=== PATIENT | female | born 1955 | race African-American/Black ===

== ENCOUNTER 2016-06-04 10:53 | Emergency (ER) | payer OTHER, BC ==
[~2016-06-04] VITALS: Ht 162.6 cm; Wt 68.5 kg
[2016-06-04 11:35] LABS: BASO % 1 % (0-3); EOS % 0 % (0-3); HEMATOCRIT 42.3 % (36.0-47.0); HEMOGLOBIN 14.4 g/dL (12.0-15.5); LYMPH # 0.3 x10^3/uL (1.0-4.8); LYMPH % 5 % (24-48); MEAN CORPUSCULAR HEMOGLOBIN 31 pg (25-35); MEAN CORPUSCULAR HGB CONC 34 g/dL (31-37); MEAN CORPUSCULAR VOLUME 92 fL (79-100); MONO % 13 % (0-9); NEUT % 82 % (31-73); PLATELET COUNT 208 x10^3/uL (140-400); RED BLOOD COUNT 4.59 x10^6/uL (3.50-5.40); RED CELL DISTRIBUTION WIDTH 14.4 % (11.5-14.5); WHITE BLOOD COUNT 6.6 x10^3/uL (4.0-11.0)
[2016-06-04 11:45] LABS: CREATININE 1.1 mg/dL (0.6-1.0); GFR 60.9; POTASSIUM 3.2 mmol/L (3.5-5.1)
[2016-06-04 11:52] LABS: ALBUMIN 3.4 g/dL (3.4-5.0); ALBUMIN/GLOBULIN RATIO 0.8 (1.0-1.7); TOTAL BILIRUBIN 0.5 mg/dL (0.2-1.0); TOTAL PROTEIN 7.7 g/dL (6.4-8.2)
--- NOTE | 2016-06-04 11:56 | EKG ---
[facility] [address] [place] [address] Test Date: 2016-06-04 Test Time: 11:18:41 Pat Name: SANDRA GRESHAM Department: Room: Gender: F Intraoperative Neuro Tech: : 1955 Requested By: LINDSAY LIMA Order Number: [id number] Reading MD: Frank Antonio Measurements Intervals [place] Rate: 121 P: 12 IN: 92 QRS: 76 QRSD: 98 T: 19 QT: 348 QTc: 497 Interpretive Statements SINUS TACHYCARDIA POSSIBLE LEFT ATRIAL ABNORMALITY INCOMPLETE RIGHT BUNDLE BRANCH BLOCK QRS(T) CONTOUR ABNORMALITY CONSIDER ANTEROSEPTAL MYOCARDIAL DAMAGE RI6.01 Unconfirmed report No previous ECG available for comparison Electronically Signed On 06-11-2016 10:30:22 NURSING SCHEDULER by Frank Antonio
--- NOTE | 2016-06-04 11:59 | RAD ---
Chest, 2 views, 06/04/2016: History: Cough and weakness Comparison is made to a study from 12/19/2014. The heart size and pulmonary vascularity are normal. There is mild scarring over the pulmonary apices. There is a tiny unchanged opacity in the lateral aspect of the right upper lobe compatible with a scar or granuloma. No acute infiltrates are seen. There is no evidence of pleural fluid. IMPRESSION: No acute cardiopulmonary abnormality is detected.
[2016-06-04] MEDS ORDERED: IV NORMAL SALINE 1000ML BAG 1,000 ML IV ONE ×2 (12:00→13:00)
[2016-06-04 12:08] LABS: OBC FLU VALID
[2016-06-04] MEDS ORDERED: KETOROLAC 15 MG/ML VIAL. IV ONE (12:15)
[2016-06-04] MEDS ORDERED: ACETAMINOPHEN 500 MG TABLET PO ONE (12:15)
[2016-06-04 12:23] LABS: PLT ESTIMATE ADEQUATE (ADEQUATE)
[2016-06-04 12:24] LABS: ANISOCYTOSIS SLIGHT
[2016-06-04] MEDS ORDERED: IPRATRPIUM/ALBUTEROL 0.5/2.5MG 3 ML NEBU. NEB ONE (13:00)
--- NOTE | 2016-06-04 13:53 | PHYS DOC ---
Past Medical History Past Medical History: Anxiety, Depression, Hypertension, Other Additional Past Medical Histor: breast ca Past Surgical History: Other Additional Past Surgical Histo: L lumpectomy Alcohol Use: Heavy Drug Use: None Adult General Chief Complaint Chief Complaint: COUGH HPI HPI Patient is a 60 year old female who presents with cough, fever, chills, myalgia , rhinorrhea, and sore throat for the past week. She notes taking abx for pna approx 3 weeks ago. She has been taking OTC cough medicine as well as prescription cough medicine per her PCP from prior illness. She denies n/v, diarrhea, dizziness, chest pain, dyspnea, abd pain, hemoptysis, leg pain or swelling, or orthopnea. Review of Systems Review of Systems Constitutional: Has fever and chills [] Eyes: Denies change in visual acuity, redness, or eye pain [] HENT: Has nasal congestion and sore throat [] Respiratory: Denies shortness of breath [] Cardiovascular: No additional information not addressed in HPI [] GI: Denies abdominal pain, nausea, vomiting, bloody stools or diarrhea [] : Denies dysuria or hematuria [] Musculoskeletal: Denies back pain or joint pain [] Integument: Denies rash or skin lesions [] Neurologic: Denies focal weakness or sensory changes [] Endocrine: Denies polyuria or polydipsia [] Current Medications Current Medications Current Medications Medications (Trade) Dose Ordered Sig/Deepak Start Time Stop Time Status Last Admin Dose Admin Acetaminophen (Tylenol) 500 mg 1X ONCE 06/04/16 12:15 06/04/16 12:16 DC 06/04/16 12:44 500 MG Albuterol/ Ipratropium (Duoneb) 3 ml 1X ONCE 06/04/16 13:00 06/04/16 13:01 DC 06/04/16 13:07 3 ML Ketorolac Tromethamine 15 mg 15 mg 1X ONCE 06/04/16 12:15 06/04/16 12:16 DC 06/04/16 12:46 15 MG Sodium Chloride (Iv Sodium Chloride 0.9% 1000ml Bag) 1,000 ml @ 1,000 mls/hr 1X ONCE 06/04/16 13:00 06/04/16 13:59 DC 06/04/16 13:14 1,000 MLS/HR Allergies Allergies Allergies Coded Allergies Type Severity Reaction Last Updated Verified No Known Drug Allergies 12/19/14 No Physical Exam Physical Exam Constitutional: Well developed, well nourished, no acute distress, non-toxic appearance. [] HENT: Normocephalic, atraumatic, bilateral external ears normal, oropharynx moist, no oral exudates, nose normal. [] Eyes: PERRLA, EOMI, conjunctiva normal, no discharge. [] Neck: Normal range of motion, no tenderness, supple, no stridor. [] Cardiovascular: Regular tachycardia [] Lungs & Thorax: Bilateral breath sounds clear to auscultation [] Abdomen: Bowel sounds normal, soft, no tenderness. [] Skin: Warm, dry, no erythema, no rash. [] Back: No tenderness, no CVA tenderness. [] Extremities: No tenderness, ROM intact, no edema, no palpable cord. [] Neurologic: Alert and oriented X 3, normal motor function, normal sensory function, no focal deficits noted. [] Psychologic: Affect normal, judgement normal, mood normal. [] Current Patient Data Vital Signs Vital Signs Date Time Temp Pulse Resp B/P Pulse Ox O2 Delivery O2 Flow Rate FiO2 06/04/16 14:44 100.3 108 22 134/75 97 Room Air 100.3 Lab Values Laboratory Tests Test 06/04/16 11:23 06/04/16 11:26 White Blood Count 6.6x10^3/uL (4.0-11.0) Red Blood Count 4.59x10^6/uL (3.50-5.40) Hemoglobin 14.4g/dL (12.0-15.5) Hematocrit 42.3% (36.0-47.0) Mean Corpuscular Volume 92fL (79-100) Mean Corpuscular Hemoglobin 31pg (25-35) Mean Corpuscular Hemoglobin Concent 34g/dL (31-37) Red Cell Distribution Width 14.4% (11.5-14.5) Platelet Count 208x10^3/uL (140-400) Neutrophils (%) (Auto) 82% (31-73) H Lymphocytes (%) (Auto) 5% (24-48) L Monocytes (%) (Auto) 13% (0-9) H Eosinophils (%) (Auto) 0% (0-3) Basophils (%) (Auto) 1% (0-3) Neutrophils # (Auto) 5.4x10^3uL (1.8-7.7) Lymphocytes # (Auto) 0.3x10^3/uL (1.0-4.8) L Monocytes # (Auto) 0.8x10^3/uL (0.0-1.1) Eosinophils # (Auto) 0.0x10^3/uL (0.0-0.7) Basophils # (Auto) 0.0x10^3/uL (0.0-0.2) Segmented Neutrophils % 72% (35-66) H Band Neutrophils % 16% (0-9) H Lymphocytes % 2% (24-48) L Monocytes % 10% (0-10) Platelet Estimate Adequate (ADEQUATE) Anisocytosis Slight Sodium Level 138mmol/L (136-145) Potassium Level 3.2mmol/L (3.5-5.1) L Chloride Level 99mmol/L (98-107) Carbon Dioxide Level 27mmol/L (21-32) Anion Gap 12 (6-14) Blood Urea Nitrogen 8mg/dL (7-20) Creatinine 1.1mg/dL (0.6-1.0) H Estimated GFR (Cockcroft-Gault) 60.9 BUN/Creatinine Ratio 7 (6-20) Glucose Level 123mg/dL (70-99) H Calcium Level 9.0mg/dL (8.5-10.1) Total Bilirubin 0.5mg/dL (0.2-1.0) Aspartate Amino Transferase (AST) 25U/L (15-37) Alanine Aminotransferase (ALT) 24U/L (14-59) Alkaline Phosphatase 91U/L (46-116) Troponin I Quantitative < 0.017ng/mL (0.000-0.055) Total Protein 7.7g/dL (6.4-8.2) Albumin 3.4g/dL (3.4-5.0) Albumin/Globulin Ratio 0.8 (1.0-1.7) L Influenza Type A Antigen Negative (NEGATIVE) Influenza Type B Antigen Negative (NEGATIVE) Laboratory Tests 06/04/16 11:23 Laboratory Tests 06/04/16 11:23 EKG EKG EKG as interpreted by me as sinus tachycardia rate 121, no ST-T changes, UT 92, QTC 497, no ectopy, no delta wave Radiology/Procedures Radiology/Procedures Chest xray as interpreted by me with no acute cardiopulmonary disease process Course & Med Decision Making Course & Med Decision Making Pertinent Labs and Imaging studies reviewed. (See chart for details) Workup is unremarkable. Cough did not improve with neb treatment. Discussed symptomatic treatment. Return precautions given. She understands and agrees with plan. Dragon Disclaimer Dragon Disclaimer This electronic medical record was generated, in whole or in part, using a voice recognition dictation system. Departure Departure Impression: Primary Impression: Viral upper respiratory infection Disposition: HOME, SELF-CARE Condition: STABLE Referrals: PETE SÁNCHEZ MD (PCP) Patient Instructions: Upper Respiratory Infection, Adult, [id number] Additional Instructions: Take Tylenol or ibuprofen as needed for moderate pain. Take tylenol with codeine as needed for severe pain. Do not drink, drive or operate heavy machinery after taking tylenol with codeine as it may make you sleepy. Follow- up with your primary care doctor. Return for any concerns. Scripts Acetaminophen With Codeine (Tylenol With Codeine #3 Tablet)1 Each Tablet1 Tab PO PRN Q4HRS PRN PAIN #10 TAB Prov:Dre JC MD 06/04/16 Dre JC MD Jun 04, 2016 13:53
[2016-06-04] MEDS ORDERED: ACET-704 PO (13:57)
[2016-06-04 14:44] VITALS: BP 134/75
== END 2016-06-04 14:46 | disposition home or self-care (01) ==
LOC: ER 10:53
DX: J06.9 Acute upper respiratory infection, unspecified (principal); R00.0 Tachycardia, unspecified; F41.9 Anxiety disorder, unspecified; F32.9 Major depressive disorder, single episode, unspecified; I10 Essential (primary) hypertension; F10.10 Alcohol abuse, uncomplicated
CPT/HCPCS: 36415; 71020; 80053; 84484; 85007; 85027; 87804; 93005; 94250; 94640; 96361; 96374; 99285; J1885; J7030; J7620

== ENCOUNTER 2018-03-17 12:51 | Emergency (ER) | payer OTHER, BC ==
[~2018-03-17] VITALS: Ht 162.6 cm; Wt 88.0 kg
[~2018-03-17 12:51] MED LIST: ACET-704 PO
[2018-03-17] MEDS: IV NORMAL SALINE 1000ML BAG 1,000 ML IV ONE ×2 (13:15→15:45)
[2018-03-17 13:25] LABS: BASO # 0.1 x10^3/uL (0.0-0.2); BASO % 1 % (0-3); EOS # 0.1 x10^3/uL (0.0-0.7); EOS % 0 % (0-3); HEMATOCRIT 48.8 % (36.0-47.0); HEMOGLOBIN 16.9 g/dL (12.0-15.5); LYMPH # 2.2 x10^3/uL (1.0-4.8); LYMPH % 17 % (24-48); MEAN CORPUSCULAR HEMOGLOBIN 30 pg (25-35); MEAN CORPUSCULAR HGB CONC 35 g/dL (31-37); MEAN CORPUSCULAR VOLUME 86 fL (79-100); MONO # 0.4 x10^3/uL (0.0-1.1); MONO % 3 % (0-9); NEUT # 10.1 x10^3uL (1.8-7.7); NEUT % 78 % (31-73); PLATELET COUNT 410 x10^3/uL (140-400); RED BLOOD COUNT 5.67 x10^6/uL (3.50-5.40); RED CELL DISTRIBUTION WIDTH 14.8 % (11.5-14.5); WHITE BLOOD COUNT 12.9 x10^3/uL (4.0-11.0)
[2018-03-17 13:36] LABS: CALCIUM 9.8 mg/dL (8.5-10.1); CREATININE 1.8 mg/dL (0.6-1.0); GFR 34.3; POTASSIUM 3.4 mmol/L (3.5-5.1)
[2018-03-17 13:42] LABS: ALBUMIN 3.7 g/dL (3.4-5.0); ALBUMIN/GLOBULIN RATIO 0.7 (1.0-1.7); MAGNESIUM 1.6 mg/dL (1.8-2.4); TOTAL BILIRUBIN 0.5 mg/dL (0.2-1.0); TOTAL PROTEIN 8.7 g/dL (6.4-8.2)
--- NOTE | 2018-03-17 13:51 | RAD ---
CT HEAD INDICATION: Syncope COMPARISON: None Available. Exposure: One or more of the following individualized dose reduction techniques were utilized for this examination: 1. Automated exposure control 2. Adjustment of the mA and/or kV according to patient size 3. Use of iterative reconstruction technique TECHNIQUE: 5 mm contiguous axial images were obtained from the skull base to the vertex FINDINGS: Mild bilateral periventricular white matter hypodensities likely chronic small vessel ischemic disease. No evidence of acute intracranial hemorrhage. No extra-axial fluid collections. No mass effect or midline shift. Ventricular size is appropriate. Basal cisterns are patent. No fractures identified.Thomson-white differentiation is preserved.Globes and orbits are within normal limits. Paranasal sinuses and mastoid air cells are clear. IMPRESSION: No acute intracranial findings. Electronically signed by: Antonio Willams MD (03/17/2018 1:48 PM) [place] [id number]
--- NOTE | 2018-03-17 14:17 | RAD ---
AP and Lateral Views of the Chest 03/17/2018 1:11 PM Indication: patient passed out today at work Comparison: 2 views of the chest June 04, 2016 Findings: There is no new focal consolidation or infiltrate identified. Probable calcified granuloma in the right upper lung noted. Heart size is normal. There is no evidence of pneumothorax or pleural effusion. No acute osseous abnormalities are identified. Impression: No evidence of acute cardiopulmonary process. Electronically signed by: Josemanuel Ocampo MD (03/17/2018 2:14 PM) [id number]
--- NOTE | 2018-03-17 14:28 | EKG ---
[facility] [address] [place] [address] Test Date: 2018-03-17 Test Time: 13:24:21 Pat Name: SANDRA GRESHAM Department: Room: Gender: F International Account Manager: : 1955 Requested By: ESEQUIEL SUTTON Order Number: [id number] Reading MD: Measurements Intervals [place] Rate: 72 P: 56 DC: 138 QRS: 52 QRSD: 82 T: 52 QT: 452 QTc: 497 Interpretive Statements SINUS RHYTHM LEFT ATRIAL ABNORMALITY QRS(T) CONTOUR ABNORMALITY CONSIDER ANTEROSEPTAL MYOCARDIAL DAMAGE CONSIDER INFERIOR MYOCARDIAL DAMAGE PROLONGED QT ABNORMAL ECG RI6.01 No previous ECG available for comparison
[2018-03-17 15:30] VITALS: BP 137/76
[2018-03-17] MEDS ORDERED: IV NORMAL SALINE 1000ML BAG 1,000 ML IV SCH (15:39)
[2018-03-17] MEDS ORDERED: ONDANSETRON PF 4 MG/2 ML VIAL. IV PRN (15:45)
[2018-03-17] MEDS ORDERED: MORPHINE SULFATE 4 MG/ML VIAL. IV PRN (15:45)
[2018-03-17] MEDS ORDERED: fentaNYL PF VIAL 100 MCG/2 ML VIAL IV PRN (15:45)
[2018-03-17 16:36] LABS: BILIRUBIN,URINE NEGATIVE (NEG); CLARITY,URINE CLOUDY; COLOR,URINE YELLOW; NITRITE,URINE NEGATIVE (NEG); PH,URINE 6.5; PROTEIN,URINE NEGATIVE (NEG-TRACE)
[2018-03-17 16:41] LABS: BACTERIA,URINE MODERATE /HPF (0-FEW); RBC,URINE 0 /HPF (0-2); SQUAMOUS EPITHELIAL CELL,UR MANY /LPF
[2018-03-17 16:42] LABS: BARBITURATES NEG (NEG); BENZODIAZEPINES NEG (NEG); CANNABINOIDS NEG (NEG); COCAINE POS (NEG); HYALINE CASTS, URINE FEW /HPF; METHADONE NEG (NEG); OPIATES NEG (NEG); PHENCYCLIDINE NEG (NEG)
[2018-03-17 16:43] LABS: AMPHETAMINE/METHAMPHETAMINE NEG (NEG)
--- NOTE | 2018-03-17 16:58 | PHYS DOC ---
Past Medical History Past Medical History: Anxiety, Depression, Hypertension, Other Additional Past Medical Histor: breast ca, CRACK ADDICT Past Surgical History: Other Additional Past Surgical Histo: L lumpectomy Alcohol Use: Heavy Drug Use: Other Social History Narrative: CRACK 5 TIMES A DAY Adult General Chief Complaint Chief Complaint: SYNCOPE HPI HPI Patient is a 62 year old [f__sex] who presents with [] Review of Systems Review of Systems Constitutional: Denies fever or chills [] Eyes: Denies change in visual acuity, redness, or eye pain [] HENT: Denies nasal congestion or sore throat [] Respiratory: Denies cough or shortness of breath [] Cardiovascular: No additional information not addressed in HPI [] GI: Denies abdominal pain, nausea, vomiting, bloody stools or diarrhea [] : Denies dysuria or hematuria [] Musculoskeletal: Denies back pain or joint pain [] Integument: Denies rash or skin lesions [] Neurologic: Denies headache, focal weakness or sensory changes [] Endocrine: Denies polyuria or polydipsia [] All other systems were reviewed and found to be within normal limits, except as documented in this note. Current Medications Current Medications Current Medications Medications (Trade) Dose Ordered Sig/Deepak Start Time Stop Time Status Last Admin Dose Admin Fentanyl Citrate (Fentanyl 2ml Vial) 50 mcg PRN Q1HR PRN 03/17/18 15:45 03/18/18 15:44 Cancel Morphine Sulfate (Morphine Sulfate) 4 mg PRN Q2HR PRN 03/17/18 15:45 03/18/18 15:44 Cancel Ondansetron HCl (Zofran) 4 mg PRN Q8HRS PRN 03/17/18 15:45 03/18/18 15:44 Cancel Sodium Chloride 1,000 ml @ 125 mls/hr Q8H 03/17/18 15:39 03/18/18 15:38 Cancel Allergies Allergies Allergies Coded Allergies Type Severity Reaction Last Updated Verified lisinopril Allergy Unknown 03/17/18 Yes Physical Exam Physical Exam Constitutional: Well developed, well nourished, no acute distress, non-toxic appearance. [] HENT: Normocephalic, atraumatic, bilateral external ears normal, oropharynx moist, no oral exudates, nose normal. [] Eyes: PERRLA, EOMI, conjunctiva normal, no discharge. [] Neck: Normal range of motion, no tenderness, supple, no stridor. [] Cardiovascular:Heart rate regular rhythm, no murmur [] Lungs & Thorax: Bilateral breath sounds clear to auscultation [] Abdomen: Bowel sounds normal, soft, no tenderness, no masses, no pulsatile masses. [] Skin: Warm, dry, no erythema, no rash. [] Back: No tenderness, no CVA tenderness. [] Extremities: No tenderness, no cyanosis, no clubbing, ROM intact, no edema. [] Neurologic: Alert and oriented X 3, normal motor function, normal sensory function, no focal deficits noted. [] Psychologic: Affect normal, judgement normal, mood normal. [] Current Patient Data Vital Signs Vital Signs Date Time Temp Pulse Resp B/P (MAP) Pulse Ox O2 Delivery O2 Flow Rate FiO2 03/17/18 16:00 78 16 99 Room Air 03/17/18 15:30 137/76 (96) 03/17/18 13:42 97.7 97.7 Lab Values Laboratory Tests Test 03/17/18 13:10 03/17/18 16:25 White Blood Count 12.9 x10^3/uL (4.0-11.0) H Red Blood Count 5.67 x10^6/uL (3.50-5.40) H Hemoglobin 16.9 g/dL (12.0-15.5) H Hematocrit 48.8 % (36.0-47.0) H Mean Corpuscular Volume 86 fL (79-100) Mean Corpuscular Hemoglobin 30 pg (25-35) Mean Corpuscular Hemoglobin Concent 35 g/dL (31-37) Red Cell Distribution Width 14.8 % (11.5-14.5) H Platelet Count 410 x10^3/uL (140-400) H Neutrophils (%) (Auto) 78 % (31-73) H Lymphocytes (%) (Auto) 17 % (24-48) L Monocytes (%) (Auto) 3 % (0-9) Eosinophils (%) (Auto) 0 % (0-3) Basophils (%) (Auto) 1 % (0-3) Neutrophils # (Auto) 10.1 x10^3uL (1.8-7.7) H Lymphocytes # (Auto) 2.2 x10^3/uL (1.0-4.8) Monocytes # (Auto) 0.4 x10^3/uL (0.0-1.1) Eosinophils # (Auto) 0.1 x10^3/uL (0.0-0.7) Basophils # (Auto) 0.1 x10^3/uL (0.0-0.2) Sodium Level 136 mmol/L (136-145) Potassium Level 3.4 mmol/L (3.5-5.1) L Chloride Level 100 mmol/L (98-107) Carbon Dioxide Level 26 mmol/L (21-32) Anion Gap 10 (6-14) Blood Urea Nitrogen 16 mg/dL (7-20) Creatinine 1.8 mg/dL (0.6-1.0) H Estimated GFR (Cockcroft-Gault) 34.3 BUN/Creatinine Ratio 9 (6-20) Glucose Level 158 mg/dL (70-99) H Calcium Level 9.8 mg/dL (8.5-10.1) Magnesium Level 1.6 mg/dL (1.8-2.4) L Total Bilirubin 0.5 mg/dL (0.2-1.0) Aspartate Amino Transferase (AST) 19 U/L (15-37) Alanine Aminotransferase (ALT) 16 U/L (14-59) Alkaline Phosphatase 115 U/L (46-116) Total Protein 8.7 g/dL (6.4-8.2) H Albumin 3.7 g/dL (3.4-5.0) Albumin/Globulin Ratio 0.7 (1.0-1.7) L Urine Collection Type Unknown Urine Color Yellow Urine Clarity Cloudy Urine pH 6.5 Urine Specific Lohn 1.020 Urine Protein Negative mg/dL (NEG-TRACE) Urine Glucose (UA) Negative mg/dL (NEG) Urine Ketones (Stick) Negative mg/dL (NEG) Urine Blood Negative (NEG) Urine Nitrite Negative (NEG) Urine Bilirubin Negative (NEG) Urine Urobilinogen Dipstick 1.0 mg/dL (0.2 mg/dL) Urine Leukocyte Esterase Trace (NEG) Urine RBC 0 /HPF (0-2) Urine WBC 1-4 /HPF (0-4) Urine Squamous Epithelial Cells Many /LPF Urine Bacteria Moderate /HPF (0-FEW) Urine Hyaline Casts Few /HPF Urine Mucus Mod /LPF Urine Opiates Screen Neg (NEG) Urine Methadone Screen Neg (NEG) Urine Barbiturates Neg (NEG) Urine Phencyclidine Screen Neg (NEG) Urine Amphetamine/Methamphetamine Neg (NEG) Urine Benzodiazepines Screen Neg (NEG) Urine Cocaine Screen Pos (NEG) Urine Cannabinoids Screen Neg (NEG) Urine Ethyl Alcohol Neg (NEG) Laboratory Tests 03/17/18 13:10 Laboratory Tests 03/17/18 13:10 EKG EKG [] Radiology/Procedures Radiology/Procedures [] PATIENT: SANDRA GRESHAM ACCOUNT: [id number] : 1955 LOCATION: ER AGE: 62 SEX: F EXAM STATUS: PRE ER ORD. PHYSICIAN: ESEQUIEL SUTTON APRN REASON: syncope PROCEDURE: CT HEAD WO CONTRAST CT HEAD INDICATION: Syncope COMPARISON: None Available. Exposure: One or more of the following individualized dose reduction techniques were utilized for this examination: 1. Automated exposure control 2. Adjustment of the mA and/or kV according to patient size 3. Use of iterative reconstruction technique TECHNIQUE: 5 mm contiguous axial images were obtained from the skull base to the vertex FINDINGS: Mild bilateral periventricular white matter hypodensities likely chronic small vessel ischemic disease. No evidence of acute intracranial hemorrhage. No extra-axial fluid collections. No mass effect or midline shift. Ventricular size is appropriate. Basal cisterns are patent. No fractures identified.Thomson-white differentiation is preserved.Globes and orbits are within normal limits. Paranasal sinuses and mastoid air cells are clear. IMPRESSION: No acute intracranial findings. Electronically signed by: Antonio Willams MD (03/17/2018 1:48 PM) [facility] DICTATED and SIGNED BY: ANTONIO WILLAMS MD DATE: 03/17/18 9388 Course & Med Decision Making Course & Med Decision Making Pertinent Labs and Imaging studies reviewed. (See chart for details) [] Dragon Disclaimer Dragon Disclaimer This electronic medical record was generated, in whole or in part, using a voice recognition dictation system. Departure Departure Impression: Primary Impression: Syncope Additional Impression: UTI (urinary tract infection) Disposition: 01 HOME, SELF-CARE Condition: STABLE Referrals: PETE SÁNCHEZ MD (PCP) Patient Instructions: Syncope, Urinary Tract Infection Additional Instructions: Take the antibiotic as directed. Follow-up with your primary care provider in one week for urine recheck. Please use the resources that you were given to receive help for your ongoing treatment. If worsening return to the emergency department. Scripts Sulfamethoxazole/Trimethoprim (BACTRIM DS TABLET) 1 Each Tablet 1 TAB PO BID for UTI, #14 TAB Prov: ESEQUIEL SUTTON APRN 03/17/18 Problem Qualifiers ESEQUIEL SUTTON APRN Mar 17, 2018 16:58
[2018-03-17] MEDS ORDERED: SULF1TAB24 PO (17:14)
== END 2018-03-17 17:25 | disposition home or self-care (01) ==
LOC: ER 12:51
DX: R55 Syncope and collapse (principal); N39.0 Urinary tract infection, site not specified; F41.9 Anxiety disorder, unspecified; F32.9 Major depressive disorder, single episode, unspecified; F10.20 Alcohol dependence, uncomplicated; Z88.8 Allergy status to other drugs, medicaments and biological substances; Y90.0 Blood alcohol level of less than 20 mg/100 ml
CPT/HCPCS: 36415; 70450; 71046; 80053; 80307; 81001; 83735; 85025; 87086; 93005; 96360; 96361; 99284; J7030

== ENCOUNTER 2018-08-30 14:11 | Inpatient (IN) | payer OTHER, BC ==
[~2018-08-30] VITALS: Ht 165.1 cm; Wt 80.3 kg
[~2018-08-30 14:11] MED LIST changes: +SULF1TAB24 PO
[2018-08-30] MEDS ORDERED: IV NORMAL SALINE 1000ML BAG 1,000 ML IV ONE (14:30)
[2018-08-30 14:33] LABS: BASO # 0.1 x10^3/uL (0.0-0.2); BASO % 1 % (0-3); EOS # 0.1 x10^3/uL (0.0-0.7); EOS % 1 % (0-3); HEMATOCRIT 40.7 % (36.0-47.0); LYMPH # 1.8 x10^3/uL (1.0-4.8); LYMPH % 21 % (24-48); MEAN CORPUSCULAR HEMOGLOBIN 30 pg (25-35); MEAN CORPUSCULAR HGB CONC 34 g/dL (31-37); MEAN CORPUSCULAR VOLUME 86 fL (79-100); MONO # 0.3 x10^3/uL (0.0-1.1); MONO % 4 % (0-9); NEUT # 6.1 x10^3uL (1.8-7.7); NEUT % 73 % (31-73); PLATELET COUNT 289 x10^3/uL (140-400); RED BLOOD COUNT 4.75 x10^6/uL (3.50-5.40); RED CELL DISTRIBUTION WIDTH 14.4 % (11.5-14.5); WHITE BLOOD COUNT 8.4 x10^3/uL (4.0-11.0)
[2018-08-30 14:50] LABS: CALCIUM 7.9 mg/dL (8.5-10.1); CREATININE 1.5 mg/dL (0.6-1.0); GFR 42.3; POTASSIUM 3.5 mmol/L (3.5-5.1)
[2018-08-30 14:55] LABS: ALBUMIN 3.2 g/dL (3.4-5.0); ALBUMIN/GLOBULIN RATIO 0.8 (1.0-1.7); TOTAL BILIRUBIN 0.7 mg/dL (0.2-1.0); TOTAL PROTEIN 7.4 g/dL (6.4-8.2)
--- NOTE | 2018-08-30 15:01 | RAD ---
CHEST AP ONLY Clinical indications: Shortness of air. COMPARISON: March 17, 2018. Findings: No acute lung infiltrate or pleural effusion or pulmonary edema or lung mass or pneumothorax is seen. The heart size, pulmonary vasculature, mediastinum and both christa are unremarkable. Impression: No acute radiographic abnormality is seen. Electronically signed by: Parmjit Anthony MD (08/30/2018 2:58 PM) [facility]
[2018-08-30] MEDS ORDERED: ONDANSETRON PF 4 MG/2 ML VIAL. IV ONE (15:15)
[2018-08-30] MEDS ORDERED: ASPIRIN CHEWABLE 81 MG TABLET. PO ONE (15:15)
--- NOTE | 2018-08-30 15:23 | PHYS DOC ---
Past Medical History Past Medical History: Anxiety, Depression, Hypertension, Other Additional Past Medical Histor: breast ca, CRACK ADDICT Past Surgical History: Other Additional Past Surgical Histo: L lumpectomy Alcohol Use: Heavy Drug Use: Cocaine, Marijuana, Other Adult General Chief Complaint Chief Complaint: NEAR SYNCOPE HPI HPI Patient is a 62 year old AA female with history of breast cancer crack cocaine addiction who presents with syncopal and hypotensive episode while at work. Patient felt lightheaded and had to sit down on the ground prior to fainting. On EMS arrival, blood pressure was 80s over 50s. Patient reports feeling nauseated and unwell this morning prior to work. She took both her and beta brendan for blood pressure medications prior to work this morning. States she smoked crack cocaine yesterday. Denies headache, chest pain palpitations, shortness of breath nausea or sweats. No other acute symptoms or complaints. Additional is a current smoker. Initial EKG reveals nonspecific ST-T wave changes in anterior lateral leads.[] Review of Systems Review of Systems ROS as per HPI All other systems were reviewed and found to be within normal limits, except as documented in this note. Current Medications Current Medications Current Medications Medications (Trade) Dose Ordered Sig/Deepak Start Time Stop Time Status Last Admin Dose Admin Aspirin (Children'S Aspirin) 324 mg 1X ONCE 08/30/18 15:15 08/30/18 15:16 DC 08/30/18 15:11 324 MG Ondansetron HCl (Zofran) 4 mg 1X ONCE 08/30/18 15:15 08/30/18 15:16 DC 08/30/18 15:10 4 MG Sodium Chloride 1,000 ml @ 1,000 mls/hr 1X ONCE 08/30/18 14:30 08/30/18 15:29 08/30/18 15:03 1,000 MLS/HR Allergies Allergies Allergies Coded Allergies Type Severity Reaction Last Updated Verified lisinopril Allergy Unknown 03/17/18 Yes Physical Exam Physical Exam Constitutional: Well developed, well nourished, no acute distress, non-toxic appearance. [] HENT: Normocephalic, atraumatic, bilateral external ears normal, oropharynx moist, no oral exudates, nose normal. [] Eyes: PERRLA, EOMI, conjunctiva normal, no discharge. [] Neck: Normal range of motion, no stridor. [] Cardiovascular:Heart rate regular rhythm, no murmur [] Lungs & Thorax: Bilateral breath sounds clear to auscultation [] Abdomen: Bowel sounds normal, soft, no tenderness. [] Skin: Warm, dry, no erythema, no rash. [] Back: No tenderness. [] Extremities: No tenderness, no edema. [] Neurologic: Alert and oriented X 3, normal motor function, normal sensory function, no focal deficits noted. [] Psychologic: Affect normal, judgement normal, mood normal. [] Current Patient Data Vital Signs Vital Signs Date Time Temp Pulse Resp B/P (MAP) Pulse Ox O2 Delivery O2 Flow Rate FiO2 08/30/18 15:01 92 14 97 08/30/18 14:11 97.8 110/61 (77) Room Air 97.8 Lab Values Laboratory Tests Test 08/30/18 14:25 08/30/18 14:30 White Blood Count 8.4 x10^3/uL (4.0-11.0) Red Blood Count 4.75 x10^6/uL (3.50-5.40) Hemoglobin 14.0 g/dL (12.0-15.5) Hematocrit 40.7 % (36.0-47.0) Mean Corpuscular Volume 86 fL (79-100) Mean Corpuscular Hemoglobin 30 pg (25-35) Mean Corpuscular Hemoglobin Concent 34 g/dL (31-37) Red Cell Distribution Width 14.4 % (11.5-14.5) Platelet Count 289 x10^3/uL (140-400) Neutrophils (%) (Auto) 73 % (31-73) Lymphocytes (%) (Auto) 21 % (24-48) L Monocytes (%) (Auto) 4 % (0-9) Eosinophils (%) (Auto) 1 % (0-3) Basophils (%) (Auto) 1 % (0-3) Neutrophils # (Auto) 6.1 x10^3uL (1.8-7.7) Lymphocytes # (Auto) 1.8 x10^3/uL (1.0-4.8) Monocytes # (Auto) 0.3 x10^3/uL (0.0-1.1) Eosinophils # (Auto) 0.1 x10^3/uL (0.0-0.7) Basophils # (Auto) 0.1 x10^3/uL (0.0-0.2) Sodium Level 140 mmol/L (136-145) Potassium Level 3.5 mmol/L (3.5-5.1) Chloride Level 104 mmol/L (98-107) Carbon Dioxide Level 26 mmol/L (21-32) Anion Gap 10 (6-14) Blood Urea Nitrogen 19 mg/dL (7-20) Creatinine 1.5 mg/dL (0.6-1.0) H Estimated GFR (Cockcroft-Gault) 42.3 BUN/Creatinine Ratio 13 (6-20) Glucose Level 137 mg/dL (70-99) H Calcium Level 7.9 mg/dL (8.5-10.1) L Total Bilirubin 0.7 mg/dL (0.2-1.0) Aspartate Amino Transferase (AST) 22 U/L (15-37) Alanine Aminotransferase (ALT) 18 U/L (14-59) Alkaline Phosphatase 99 U/L (46-116) Troponin I Quantitative 0.383 ng/mL (0.000-0.055) JD-Ywj-G-Type Natriuretic Peptide 177 pg/mL (0-124) H Total Protein 7.4 g/dL (6.4-8.2) Albumin 3.2 g/dL (3.4-5.0) L Albumin/Globulin Ratio 0.8 (1.0-1.7) L Lactic Acid Level 2.0 mmol/L (0.4-2.0) Laboratory Tests 08/30/18 14:25 Laboratory Tests 08/30/18 14:25 EKG EKG EKG: Normal sinus rhythm, rate 67, on specific ST-T wave changes, anterior lateral leads.[] Radiology/Procedures Radiology/Procedures [CXR: No acute cardiopulmonary disease per radiology report] Course & Med Decision Making Course & Med Decision Making Pertinent Labs and Imaging studies reviewed. (See chart for details) [Patient with near-syncope, hypotension, elevated troponin in the setting of recent Crack cocaine use. Patient denies chest pain palpitations shortness of breath. IV fluids given, patient resting comfortably. Will admit to the hospitalist service. Cardiology notified of consult.] Dragon Disclaimer Dragon Disclaimer This electronic medical record was generated, in whole or in part, using a voice recognition dictation system. Departure Departure Impression: Primary Impression: Near syncope Additional Impressions: NSTEMI (non-ST elevated myocardial infarction) Cocaine abuse Disposition: 09 ADMITTED INPATIENT Admitting Physician: Nghia Brower Condition: STABLE Referrals: PETE SÁNCHEZ MD (PCP) Problem Qualifiers GURVINDER STARKS DO August 30, 2018 15:23
[2018-08-30] MEDS ORDERED: ONDANSETRON PF 4 MG/2 ML VIAL. IV PRN (15:30)
[2018-08-30] MEDS ORDERED: NITROGLYCERIN SUBLINGUAL 0.4 MG BOTTLE OF 25. SL PRN (15:30)
[2018-08-30] MEDS ORDERED: ARIP5TAB13 PO (16:42)
[2018-08-30] MEDS ORDERED: HYDR50TA6 PO (16:42)
[2018-08-30] MEDS ORDERED: HYDR25TA PO (16:42)
[2018-08-30] MEDS ORDERED: METO-239 PO (16:42)
[2018-08-30] MEDS ORDERED: LEXAPRO5 MG PO (16:42)
[2018-08-30 17:03] VITALS: BP 137/84
--- NOTE | 2018-08-30 17:21 | PDOC1 ---
History and Physical Date of Admission: Date of Admission DATE: 08/30/18 TIME: 17:18 Chief Complaint: Problems: (1) Pneumonia, community acquired (2) Viral upper respiratory infection (3) Cocaine abuse (4) NSTEMI (non-ST elevated myocardial infarction) (5) Near syncope Chief Complain: Near syncope nausea hypotension crack cocaine History of Present Illness: HPI: Patient is a pleasant 62-year-old female who appears younger than her stated age She has some comorbidities including breast cancer Surprisingly she smokes crack cocaine Today she had a near syncope She felt nauseated and lightheaded Ambulance e was called Blood pressures were 80/50 She's brought to the ER for evaluation I discussed case with ER physician, she is crack cocaine positive and her troponin is a little high at 0.3 It appears she may have had a cardiac event Smiley patient consult cardiology Past Medical/Surgical History: PMH/PSH: Past Medical History: Anxiety, Depression, Hypertension, Other Additional Past Medical Histor: breast ca, CRACK ADDICT Past Surgical History: Other Additional Past Surgical Histo: L lumpectomy Alcohol Use: Heavy Drug Use: Cocaine, Marijuana, Other Allergies: Allergies: Coded Allergies: lisinopril (Verified Allergy, Unknown, 03/17/18) Family History: Family History: Coronary disease Social History: Social Hisoty: She works at [employer] smokes crack cocaine social alcohol Current Medications: Current Medications Current Medications Sodium Chloride 1,000 ml @ 1,000 mls/hr 1X ONCE IV Last administered on 08/30/18at 15:03; Start 08/30/18 at 14:30; Stop 08/30/18 at 15:29; Status DC Aspirin (Children'S Aspirin) 324 mg 1X ONCE PO Last administered on 08/30/18at 15:11; Start 08/30/18 at 15:15; Stop 08/30/18 at 15:16; Status DC Ondansetron HCl (Zofran) 4 mg 1X ONCE IV Last administered on 08/30/18at 15:10; Start 08/30/18 at 15:15; Stop 08/30/18 at 15:16; Status DC Ondansetron HCl (Zofran) 4 mg PRN Q8HRS PRN IV NAUSEA/VOMITING; Start 08/30/18 at 15:30; Stop 08/31/18 at 15:29 Sodium Chloride 1,000 ml @ 75 mls/hr [id number] IV ; Start 08/30/18 at 15:30; Stop 08/31/18 at 15:29 Nitroglycerin (Nitrostat) 0.4 mg PRN Q5MIN PRN SL CHEST PAIN; Start 08/30/18 at 15:30; Stop 08/31/18 at 15:29 Active Scripts Active Reported Hydroxyzine Hcl 25 Mg Tablet 1 Tab PO PRN Q6HRS PRN Abilify (Aripiprazole) 5 Mg Tablet 5 Mg PO DAILY Lexapro (Escitalopram Oxalate) 5 Mg Tablet 3 Tab PO DAILY Hydrochlorothiazide Tablet (Hydrochlorothiazide) 50 Mg Tablet 25 Mg PO DAILY Metoprolol Succinate ( Xl ) (Metoprolol Succinate) 25 Mg Tab.er.24h 1 Tab PO DAILY ROS: Review of Systems Review of System REVIEW OF SYSTEMS: GENERAL: Complains of weakness SKIN: No bruising, hair changes or rashes. EYES: No blurred, double or loss of vision. NOSE AND THROAT: No history of nosebleeds, hoarseness or sore throat. HEART: No history of palpitations, chest pain or shortness of breath on exertion. LUNGS: Denies cough, hemoptysis, wheezing or shortness of breath. GASTROINTESTINAL: Denies changes in appetite, nausea, vomiting, diarrhea or constipation. GENITOURINARY: No history of frequency, urgency, hesitancy or nocturia. NEUROLOGIC: Denies history of numbness, tingling, tremor or weakness. PSYCHIATRIC: No history of panic, anxiety or depression. ENDOCRINE: No history of heat or cold intolerance, polyuria or polydipsia. EXTREMITIES: Denies muscle weakness, joint pain, pain on walking or stiffness. Physical Exam: Vital Signs: Vital Signs Date Time Temp Pulse Resp B/P (MAP) Pulse Ox O2 Delivery O2 Flow Rate FiO2 08/30/18 17:03 97.3 70 16 137/84 (101) 98 Room Air 97.3 Physcial Exam: GEN.: No apparent distress. Alert and oriented. HEENT: Head is normocephalic, atraumatic NECK: Supple, no JVD LUNGS: Clear to auscultation without rhonchi or wheezing HEART: RRR, S1, S2 present. Peripheral pulses intact ABDOMEN: Soft, nontender. Positive bowel sounds no organomegaly EXTREMITIES: Without any cyanosis, clubbing, or edema. Pedal pulses intact NEUROLOGIC: Normal speech, normal tone. A&O x 3 PSYCHIATRIC: Normal affect, normal mood. Stable SKIN: No ulcerations or rashes VASCULAR: Good capillary refill Labs: Labs: Laboratory Tests Test 08/30/18 14:25 08/30/18 14:30 White Blood Count 8.4 x10^3/uL (4.0-11.0) Red Blood Count 4.75 x10^6/uL (3.50-5.40) Hemoglobin 14.0 g/dL (12.0-15.5) Hematocrit 40.7 % (36.0-47.0) Mean Corpuscular Volume 86 fL (79-100) Mean Corpuscular Hemoglobin 30 pg (25-35) Mean Corpuscular Hemoglobin Concent 34 g/dL (31-37) Red Cell Distribution Width 14.4 % (11.5-14.5) Platelet Count 289 x10^3/uL (140-400) Neutrophils (%) (Auto) 73 % (31-73) Lymphocytes (%) (Auto) 21 % (24-48) Monocytes (%) (Auto) 4 % (0-9) Eosinophils (%) (Auto) 1 % (0-3) Basophils (%) (Auto) 1 % (0-3) Neutrophils # (Auto) 6.1 x10^3uL (1.8-7.7) Lymphocytes # (Auto) 1.8 x10^3/uL (1.0-4.8) Monocytes # (Auto) 0.3 x10^3/uL (0.0-1.1) Eosinophils # (Auto) 0.1 x10^3/uL (0.0-0.7) Basophils # (Auto) 0.1 x10^3/uL (0.0-0.2) Sodium Level 140 mmol/L (136-145) Potassium Level 3.5 mmol/L (3.5-5.1) Chloride Level 104 mmol/L (98-107) Carbon Dioxide Level 26 mmol/L (21-32) Anion Gap 10 (6-14) Blood Urea Nitrogen 19 mg/dL (7-20) Creatinine 1.5 mg/dL (0.6-1.0) Estimated GFR (Cockcroft-Gault) 42.3 BUN/Creatinine Ratio 13 (6-20) Glucose Level 137 mg/dL (70-99) Calcium Level 7.9 mg/dL (8.5-10.1) Total Bilirubin 0.7 mg/dL (0.2-1.0) Aspartate Amino Transf (AST/SGOT) 22 U/L (15-37) Alanine Aminotransferase (ALT/SGPT) 18 U/L (14-59) Alkaline Phosphatase 99 U/L (46-116) Creatine Kinase 100 U/L (26-192) Troponin I Quantitative 0.383 ng/mL (0.000-0.055) YU-Obv-Y-Type Natriuretic Peptide 177 pg/mL (0-124) Total Protein 7.4 g/dL (6.4-8.2) Albumin 3.2 g/dL (3.4-5.0) Albumin/Globulin Ratio 0.8 (1.0-1.7) Lactic Acid Level 2.0 mmol/L (0.4-2.0) Laboratory Tests Test 08/30/18 14:25 08/30/18 14:30 White Blood Count 8.4 x10^3/uL (4.0-11.0) Red Blood Count 4.75 x10^6/uL (3.50-5.40) Hemoglobin 14.0 g/dL (12.0-15.5) Hematocrit 40.7 % (36.0-47.0) Mean Corpuscular Volume 86 fL (79-100) Mean Corpuscular Hemoglobin 30 pg (25-35) Mean Corpuscular Hemoglobin Concent 34 g/dL (31-37) Red Cell Distribution Width 14.4 % (11.5-14.5) Platelet Count 289 x10^3/uL (140-400) Neutrophils (%) (Auto) 73 % (31-73) Lymphocytes (%) (Auto) 21 % (24-48) Monocytes (%) (Auto) 4 % (0-9) Eosinophils (%) (Auto) 1 % (0-3) Basophils (%) (Auto) 1 % (0-3) Neutrophils # (Auto) 6.1 x10^3uL (1.8-7.7) Lymphocytes # (Auto) 1.8 x10^3/uL (1.0-4.8) Monocytes # (Auto) 0.3 x10^3/uL (0.0-1.1) Eosinophils # (Auto) 0.1 x10^3/uL (0.0-0.7) Basophils # (Auto) 0.1 x10^3/uL (0.0-0.2) Sodium Level 140 mmol/L (136-145) Potassium Level 3.5 mmol/L (3.5-5.1) Chloride Level 104 mmol/L (98-107) Carbon Dioxide Level 26 mmol/L (21-32) Anion Gap 10 (6-14) Blood Urea Nitrogen 19 mg/dL (7-20) Creatinine 1.5 mg/dL (0.6-1.0) Estimated GFR (Cockcroft-Gault) 42.3 BUN/Creatinine Ratio 13 (6-20) Glucose Level 137 mg/dL (70-99) Calcium Level 7.9 mg/dL (8.5-10.1) Total Bilirubin 0.7 mg/dL (0.2-1.0) Aspartate Amino Transf (AST/SGOT) 22 U/L (15-37) Alanine Aminotransferase (ALT/SGPT) 18 U/L (14-59) Alkaline Phosphatase 99 U/L (46-116) Creatine Kinase 100 U/L (26-192) Troponin I Quantitative 0.383 ng/mL (0.000-0.055) CC-Ufk-H-Type Natriuretic Peptide 177 pg/mL (0-124) Total Protein 7.4 g/dL (6.4-8.2) Albumin 3.2 g/dL (3.4-5.0) Albumin/Globulin Ratio 0.8 (1.0-1.7) Lactic Acid Level 2.0 mmol/L (0.4-2.0) Images: Images Chest x-rays normal Assessment/Plan Assessment/Plan Critical cocaine abuse with secondary hypotension and elevated troponin suspect possible cardiac event Plan Serial enzymes serially EKGs Cardiac monitoring Consult cardiology I told her to stop smoking crack Home meds PT OT DVT prophylaxis Full code Prognosis guarded Total time 31 minutes RICK GOMEZ III DO August 30, 2018 17:21
[2018-08-30] MEDS: IV NORMAL SALINE 1000ML BAG 1,000 ML IV SCH (18:15)
[2018-08-30] MEDS ORDERED: hydrOXYzine PAMOATE 25 MG CAPSULE PO PRN (18:45)
[2018-08-30 19:59] VITALS: BP 91/56
[2018-08-30 23:23] VITALS: BP 98/55
[2018-08-31 03:44] VITALS: BP 100/61
[2018-08-31] MEDS: IV NORMAL SALINE 1000ML BAG 1,000 ML IV SCH (04:50)
[2018-08-31 07:13] VITALS: BP 115/70
[2018-08-31] MEDS ORDERED: hydroCHLOROthiazide 25 MG TABLET PO SCH (09:00)
[2018-08-31] MEDS ORDERED: METOPROLOL SUCC 24HR ER 25 MG TAB.ER.24H. PO SCH (09:00)
[2018-08-31] MEDS: ARIPiprazole 5 MG TABLET PO SCH (09:22)
[2018-08-31] MEDS: CITALOPRAM 10 MG TABLET. PO SCH (09:25)
[2018-08-31] MEDS ORDERED: amLODIPine BESYLATE 5 MG TABLET PO ONE (10:00)
--- NOTE | 2018-08-31 10:10 | CONS ---
DATE OF CONSULTATION: 08/31/2018 REASON FOR CONSULTATION: Near syncope and elevated troponin. HISTORY OF PRESENT ILLNESS: The patient is a pleasant 62-year-old woman with past medical history as noted below, who presents to the hospital in the setting of near syncope. She apparently was doing her usual activities and felt some lightheadedness and did not lose consciousness, but had to go to the floor. She did not have any chest pain or shortness of breath. Her blood pressures were low upon arrival of the EMS. Initial ER troponin was also elevated and therefore, Cardiology was consulted. The patient reports compliance at home with her medications, including metoprolol and hydrochlorothiazide, which she has been taking for quite some time. She denies any other acute cardiac issues. She does not have any chest pain, orthopnea, PND or lower extremity edema. No obvious palpitations or arrhythmia history. PAST MEDICAL HISTORY: 1. Hypertension, mild. 2. Drug abuse. 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 She admits to using crack cocaine every other day. Denies any alcohol or other illicit drug use. No tobacco use. She takes care of her mother who is 92 years old. ALLERGIES: LISINOPRIL. HOME CARDIOVASCULAR MEDICATIONS: Include hydrochlorothiazide and metoprolol. REVIEW OF SYSTEMS: Negative for 10 out of 14 systems reviewed, unless otherwise mentioned above in the HPI. PHYSICAL EXAMINATION: VITAL SIGNS: Afebrile, 69, 20, 117/50 and 93% on room air. GENERAL: She is alert and oriented, in no acute distress. HEAD AND NECK EXAMINATION: Unremarkable. CARDIAC: Regular rate and rhythm, without murmurs, rubs or gallops. LUNGS: Clear to auscultation bilaterally. ABDOMEN: Soft, nontender and nondistended. EXTREMITIES: No clubbing, cyanosis or edema. NEUROLOGIC: No focal deficits. MUSCULOSKELETAL: No trauma. DIAGNOSTIC STUDIES AND LABORATORIES: Troponin elevated 0.575. Hemoglobin and platelets within normal limits. Creatinine is elevated at 1.5. Urine tox screen previously was positive for cocaine. Chest x-ray is notable for no obvious lung infiltrates or pleural effusions. EKG was reviewed by me yesterday and did not reveal any acute ST or T-wave changes. IMPRESSION: 1. Near syncope in the setting of routine crack cocaine use as well as likely dehydration as evidenced by elevated creatinine and use of diuretics at home. 2. Acute kidney injury secondary to near syncope in the setting of routine crack cocaine use as well as likely dehydration as evidenced by elevated creatinine and use of diuretics at home. 3. Minimal hypertension. RECOMMENDATIONS: 1. At this present time, we will stop her metoprolol and hydrochlorothiazide given her dehydration and cocaine use. 2. Start low-dose amlodipine as needed, although I do not suspect she needs any blood pressure agents at this time. She could probably be sent home on home blood pressure monitoring and determine if she needs anything on an outpatient basis. 3. Check echocardiogram given her elevated troponin and near syncope to rule out any structural heart disease, although I have low suspicion for this given that she does not have any obvious heart failure symptoms. 4. Repeat troponin and gently hydrate as tolerated. Recheck creatinine. I did discuss with the patient that she needs to seek help for crack cocaine addiction. We will plan for further evaluation depending on the echocardiogram. Thank you for this consultation. MEENAKSHI SELLERS MD DR: CHINYERE/carly JOB#: [id number] / [id number] VASU
--- NOTE | 2018-08-31 11:09 | EKG ---
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
--- NOTE | 2018-08-31 11:27 | PDOC ---
PROGRESS NOTES History of Present Illness History of Present Illness Images: Images Chest x-rays normal Assessment/Plan Assessment/Plan Critical cocaine abuse with secondary hypotension elevated troponin suspect possible cardiac event Acute kidney injury secondary to near syncope Plan Serial enzymes serial EKGs Cardiac monitoring Consult cardiology stop smoking crack Home meds PT OT DVT prophylaxis Full code Prognosis guarded echo today 39 min pt exam, chart review, > 50% of time spent with exam, chart review, pt care coordination Vitals Vitals Vital Signs Date Time Temp Pulse Resp B/P (MAP) Pulse Ox O2 Delivery O2 Flow Rate FiO2 08/31/18 08:00 Room Air 08/31/18 07:13 98.2 69 20 115/70 (85) 98.2 08/31/18 03:44 93 Physical Exam General: Alert, Oriented X3, Cooperative, mild distress Heart: Regular rate Lungs: Clear Abdomen: Normal bowel sounds, Soft Extremities: No clubbing, No cyanosis, No edema Skin: No breakdown Labs LABS CHEST AP ONLY Clinical indications: Shortness of air. COMPARISON: March 17, 2018. Findings: No acute lung infiltrate or pleural effusion or pulmonary edema or lung mass or pneumothorax is seen. The heart size, pulmonary vasculature, mediastinum and both christa are unremarkable. Impression: No acute radiographic abnormality is seen. Electronically signed by: Darell Anthony MD (08/30/2018 2:58 PM) [facility] DICTATED and SIGNED BY: DARELL ANTHONY MD DATE: 08/30/18 1458 Laboratory Tests Test 08/30/18 14:25 08/30/18 14:30 08/30/18 18:20 08/30/18 21:20 White Blood Count 8.4 x10^3/uL (4.0-11.0) Red Blood Count 4.75 x10^6/uL (3.50-5.40) Hemoglobin 14.0 g/dL (12.0-15.5) Hematocrit 40.7 % (36.0-47.0) Mean Corpuscular Volume 86 fL (79-100) Mean Corpuscular Hemoglobin 30 pg (25-35) Mean Corpuscular Hemoglobin Concent 34 g/dL (31-37) Red Cell Distribution Width 14.4 % (11.5-14.5) Platelet Count 289 x10^3/uL (140-400) Neutrophils (%) (Auto) 73 % (31-73) Lymphocytes (%) (Auto) 21 % (24-48) Monocytes (%) (Auto) 4 % (0-9) Eosinophils (%) (Auto) 1 % (0-3) Basophils (%) (Auto) 1 % (0-3) Neutrophils # (Auto) 6.1 x10^3uL (1.8-7.7) Lymphocytes # (Auto) 1.8 x10^3/uL (1.0-4.8) Monocytes # (Auto) 0.3 x10^3/uL (0.0-1.1) Eosinophils # (Auto) 0.1 x10^3/uL (0.0-0.7) Basophils # (Auto) 0.1 x10^3/uL (0.0-0.2) Sodium Level 140 mmol/L (136-145) Potassium Level 3.5 mmol/L (3.5-5.1) Chloride Level 104 mmol/L (98-107) Carbon Dioxide Level 26 mmol/L (21-32) Anion Gap 10 (6-14) Blood Urea Nitrogen 19 mg/dL (7-20) Creatinine 1.5 mg/dL (0.6-1.0) Estimated GFR (Cockcroft-Gault) 42.3 BUN/Creatinine Ratio 13 (6-20) Glucose Level 137 mg/dL (70-99) Calcium Level 7.9 mg/dL (8.5-10.1) Total Bilirubin 0.7 mg/dL (0.2-1.0) Aspartate Amino Transf (AST/SGOT) 22 U/L (15-37) Alanine Aminotransferase (ALT/SGPT) 18 U/L (14-59) Alkaline Phosphatase 99 U/L (46-116) Creatine Kinase 100 U/L (26-192) Troponin I Quantitative 0.383 ng/mL (0.000-0.055) 0.512 ng/mL (0.000-0.055) 0.575 ng/mL (0.000-0.055) EN-Ndf-D-Type Natriuretic Peptide 177 pg/mL (0-124) Total Protein 7.4 g/dL (6.4-8.2) Albumin 3.2 g/dL (3.4-5.0) Albumin/Globulin Ratio 0.8 (1.0-1.7) Lactic Acid Level 2.0 mmol/L (0.4-2.0) Assessment and Plan Assessmemt and Plan Problems Medical Problems: (1) Cocaine abuse Status: Acute (2) Near syncope Status: Acute (3) NSTEMI (non-ST elevated myocardial infarction) Status: Acute Past Medical/Surgical History: PMH/PSH: Past Medical History: Anxiety, Depression, Hypertension, Other Additional Past Medical Histor: breast ca, CRACK ADDICT Past Surgical History: Other Additional Past Surgical Histo: L lumpectomy Alcohol Use: Heavy Drug Use: Cocaine, Marijuana, Other Allergies: Allergies: Coded Allergies: lisinopril (Verified Allergy, Unknown, 03/17/18) Family History: Family History: Coronary disease Social History: Social Hisoty: She works at [employer] smokes crack cocaine social alcohol Comment Review of Relevant I have reviewed the following items meena (where applicable) has been applied. Labs Laboratory Tests Test 08/30/18 14:25 08/30/18 14:30 08/30/18 18:20 08/30/18 21:20 White Blood Count 8.4 x10^3/uL (4.0-11.0) Red Blood Count 4.75 x10^6/uL (3.50-5.40) Hemoglobin 14.0 g/dL (12.0-15.5) Hematocrit 40.7 % (36.0-47.0) Mean Corpuscular Volume 86 fL (79-100) Mean Corpuscular Hemoglobin 30 pg (25-35) Mean Corpuscular Hemoglobin Concent 34 g/dL (31-37) Red Cell Distribution Width 14.4 % (11.5-14.5) Platelet Count 289 x10^3/uL (140-400) Neutrophils (%) (Auto) 73 % (31-73) Lymphocytes (%) (Auto) 21 % (24-48) Monocytes (%) (Auto) 4 % (0-9) Eosinophils (%) (Auto) 1 % (0-3) Basophils (%) (Auto) 1 % (0-3) Neutrophils # (Auto) 6.1 x10^3uL (1.8-7.7) Lymphocytes # (Auto) 1.8 x10^3/uL (1.0-4.8) Monocytes # (Auto) 0.3 x10^3/uL (0.0-1.1) Eosinophils # (Auto) 0.1 x10^3/uL (0.0-0.7) Basophils # (Auto) 0.1 x10^3/uL (0.0-0.2) Sodium Level 140 mmol/L (136-145) Potassium Level 3.5 mmol/L (3.5-5.1) Chloride Level 104 mmol/L (98-107) Carbon Dioxide Level 26 mmol/L (21-32) Anion Gap 10 (6-14) Blood Urea Nitrogen 19 mg/dL (7-20) Creatinine 1.5 mg/dL (0.6-1.0) Estimated GFR (Cockcroft-Gault) 42.3 BUN/Creatinine Ratio 13 (6-20) Glucose Level 137 mg/dL (70-99) Calcium Level 7.9 mg/dL (8.5-10.1) Total Bilirubin 0.7 mg/dL (0.2-1.0) Aspartate Amino Transf (AST/SGOT) 22 U/L (15-37) Alanine Aminotransferase (ALT/SGPT) 18 U/L (14-59) Alkaline Phosphatase 99 U/L (46-116) Creatine Kinase 100 U/L (26-192) Troponin I Quantitative 0.383 ng/mL (0.000-0.055) 0.512 ng/mL (0.000-0.055) 0.575 ng/mL (0.000-0.055) IH-Hcs-Q-Type Natriuretic Peptide 177 pg/mL (0-124) Total Protein 7.4 g/dL (6.4-8.2) Albumin 3.2 g/dL (3.4-5.0) Albumin/Globulin Ratio 0.8 (1.0-1.7) Lactic Acid Level 2.0 mmol/L (0.4-2.0) Laboratory Tests Test 08/30/18 14:25 08/30/18 14:30 08/30/18 18:20 08/30/18 21:20 White Blood Count 8.4 x10^3/uL (4.0-11.0) Red Blood Count 4.75 x10^6/uL (3.50-5.40) Hemoglobin 14.0 g/dL (12.0-15.5) Hematocrit 40.7 % (36.0-47.0) Mean Corpuscular Volume 86 fL (79-100) Mean Corpuscular Hemoglobin 30 pg (25-35) Mean Corpuscular Hemoglobin Concent 34 g/dL (31-37) Red Cell Distribution Width 14.4 % (11.5-14.5) Platelet Count 289 x10^3/uL (140-400) Neutrophils (%) (Auto) 73 % (31-73) Lymphocytes (%) (Auto) 21 % (24-48) Monocytes (%) (Auto) 4 % (0-9) Eosinophils (%) (Auto) 1 % (0-3) Basophils (%) (Auto) 1 % (0-3) Neutrophils # (Auto) 6.1 x10^3uL (1.8-7.7) Lymphocytes # (Auto) 1.8 x10^3/uL (1.0-4.8) Monocytes # (Auto) 0.3 x10^3/uL (0.0-1.1) Eosinophils # (Auto) 0.1 x10^3/uL (0.0-0.7) Basophils # (Auto) 0.1 x10^3/uL (0.0-0.2) Sodium Level 140 mmol/L (136-145) Potassium Level 3.5 mmol/L (3.5-5.1) Chloride Level 104 mmol/L (98-107) Carbon Dioxide Level 26 mmol/L (21-32) Anion Gap 10 (6-14) Blood Urea Nitrogen 19 mg/dL (7-20) Creatinine 1.5 mg/dL (0.6-1.0) Estimated GFR (Cockcroft-Gault) 42.3 BUN/Creatinine Ratio 13 (6-20) Glucose Level 137 mg/dL (70-99) Calcium Level 7.9 mg/dL (8.5-10.1) Total Bilirubin 0.7 mg/dL (0.2-1.0) Aspartate Amino Transf (AST/SGOT) 22 U/L (15-37) Alanine Aminotransferase (ALT/SGPT) 18 U/L (14-59) Alkaline Phosphatase 99 U/L (46-116) Creatine Kinase 100 U/L (26-192) Troponin I Quantitative 0.383 ng/mL (0.000-0.055) 0.512 ng/mL (0.000-0.055) 0.575 ng/mL (0.000-0.055) TF-Qaf-Y-Type Natriuretic Peptide 177 pg/mL (0-124) Total Protein 7.4 g/dL (6.4-8.2) Albumin 3.2 g/dL (3.4-5.0) Albumin/Globulin Ratio 0.8 (1.0-1.7) Lactic Acid Level 2.0 mmol/L (0.4-2.0) Medications Current Medications Sodium Chloride 1,000 ml @ 1,000 mls/hr 1X ONCE IV Last administered on 08/30/18at 15:03; Start 08/30/18 at 14:30; Stop 08/30/18 at 15:29; Status DC Aspirin (Children'S Aspirin) 324 mg 1X ONCE PO Last administered on 08/30/18at 15:11; Start 08/30/18 at 15:15; Stop 08/30/18 at 15:16; Status DC Ondansetron HCl (Zofran) 4 mg 1X ONCE IV Last administered on 08/30/18at 15:10; Start 08/30/18 at 15:15; Stop 08/30/18 at 15:16; Status DC Ondansetron HCl (Zofran) 4 mg PRN Q8HRS PRN IV NAUSEA/VOMITING; Start 08/30/18 at 15:30; Stop 08/31/18 at 15:29 Sodium Chloride 1,000 ml @ 75 mls/hr [id number] IV Last administered on 08/31/18at 04:50; Start 08/30/18 at 15:30; Stop 08/31/18 at 15:29 Nitroglycerin (Nitrostat) 0.4 mg PRN Q5MIN PRN SL CHEST PAIN; Start 08/30/18 at 15:30; Stop 08/31/18 at 15:29 Aripiprazole (Abilify) 5 mg DAILY PO Last administered on 08/31/18at 09:22; Start 08/31/18 at 09:00 Metoprolol Succinate (Toprol Xl) 25 mg DAILY PO ; Start 08/31/18 at 09:00; Stop 08/31/18 at 09:18; Status DC Citalopram Hydrobromide (CeleXA) 30 mg DAILY PO Last administered on 08/31/18at 09:25; Start 08/31/18 at 09:00 Hydrochlorothiazide (Hydrodiuril) 25 mg DAILY PO ; Start 08/31/18 at 09:00; Stop 08/31/18 at 09:18; Status DC Hydroxyzine Pamoate (Vistaril) 25 mg PRN Q6HRS PRN PO ANXIETY/AGITATION; Start 08/30/18 at 18:45 Amlodipine Besylate (Norvasc) 5 mg 1X ONCE PO ; Start 08/31/18 at 10:00; Stop 08/31/18 at 10:01; Status DC Amlodipine Besylate (Norvasc) 5 mg DAILY PO ; Start 09/01/18 at 09:00 Active Scripts Active Reported Hydroxyzine Hcl 25 Mg Tablet 1 Tab PO PRN Q6HRS PRN Abilify (Aripiprazole) 5 Mg Tablet 5 Mg PO DAILY Lexapro (Escitalopram Oxalate) 5 Mg Tablet 3 Tab PO DAILY Hydrochlorothiazide Tablet (Hydrochlorothiazide) 50 Mg Tablet 25 Mg PO DAILY Metoprolol Succinate ( Xl ) (Metoprolol Succinate) 25 Mg Tab.er.24h 1 Tab PO DAILY Vitals/I & O Vital Sign - Last 24 Hours 08/30/18 08/30/18 08/30/18 08/30/18 14:11 14:30 14:52 14:55 Temp 97.8 97.8 Pulse 64 64 62 81 Resp 14 14 14 14 B/P (MAP) 110/61 (77) Pulse Ox 99 100 100 99 O2 Delivery Room Air 08/30/18 08/30/18 08/30/18 08/30/18 15:01 15:15 15:30 15:45 Pulse 92 64 68 64 Resp 14 15 14 16 Pulse Ox 97 100 100 100 08/30/18 08/30/18 08/30/18 08/30/18 16:00 16:44 17:03 19:59 Temp 97.3 97.3 Pulse 68 70 Resp 16 16 B/P (MAP) 137/84 (101) Pulse Ox 100 98 O2 Delivery Room Air Room Air Room Air 08/30/18 08/30/18 08/31/18 08/31/18 19:59 23:23 03:44 07:13 Temp 97.3 97.4 98.1 98.2 97.3 97.4 98.1 98.2 Pulse 66 65 61 69 Resp 18 18 19 20 B/P (MAP) 91/56 (68) 98/55 (69) 100/61 (74) 115/70 (85) Pulse Ox 96 97 93 O2 Delivery Room Air Room Air Room Air Room Air 08/31/18 08:00 O2 Delivery Room Air Intake and Output 08/30/18 08/30/18 08/31/18 15:00 23:00 07:00 Intake Total 1140 ml 360 ml Balance 1140 ml 360 ml ERROL GARCIA MD August 31, 2018 11:27
[2018-08-31 11:50] VITALS: BP 113/69
[2018-08-31 11:52] LABS: CALCIUM 8.8 mg/dL (8.5-10.1); CREATININE 1.1 mg/dL (0.6-1.0); GFR 60.5; POTASSIUM 3.7 mmol/L (3.5-5.1)
[2018-08-31 14:43] VITALS: BP 121/68
--- NOTE | 2018-08-31 14:44 | EKG ---
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
--- NOTE | 2018-08-31 16:27 | RAD ---
CT HEAD WO CONTRAST Clinical indications: Near syncope. COMPARISON: March 17, 2018. Technique: Noncontrast axial cross sectional scanning of the head was performed. PQRS compliance Statement One or more of the following individualized dose reduction techniques were utilized for this study: 1. Automated exposure control 2. Adjustment of the mA and/or kV according to patient size 3. Use of iterative reconstruction technique Findings: No acute intracranial hemorrhage or midline shift or mass-effect or hydrocephalus or extra-axial fluid collection is seen. Bilateral periventricular white matter hypodensity is evident and unchanged from the previous study consistent with chronic small vessel ischemic disease. No new focal hypodense area or sulci effacement is seen to indicate an acute infarct or edema radiographically. No skull fracture or pneumocephalus is seen. No opacification of the mastoid sinuses or the paranasal sinuses is seen. The maxillary sinuses are not completely seen in this study. Impression: No new intracranial abnormality is seen. Electronically signed by: Parmjit Anthony MD (08/31/2018 4:24 PM) [facility]
--- NOTE | 2018-08-31 18:39 | RAD ---
Bilateral Carotid Doppler: Reason for examination: Syncope. Carotid and vertebral arterial systems were evaluated bilaterally with grayscale imaging, color-flow imaging and spectral analysis. No significant plaque or stenosis is evident in the carotid arteries. Vertebral arteries show antegrade flow. Flow velocities are as follows (in m/sec): Right Left CCA peak 73 76 ICA peak 57 60 ICA end diastolic 23 24 ECA peak 47 40 Vertebral artery 25.2 27.7 ICA/CCA ratio 0.7 0.8 Impression: No hemodynamically significant carotid arterial stenosis. Antegrade vertebral flow bilaterally. Electronically signed by: Eileen Moreno MD (08/31/2018 6:36 PM) [facility]
[2018-08-31 19:05] VITALS: BP 107/64
[2018-08-31 22:50] VITALS: BP 120/65
[2018-09-01 03:15] VITALS: BP 137/85
[2018-09-01 03:29] LABS: BASO % 0 % (0-3); EOS # 0.1 x10^3/uL (0.0-0.7); EOS % 2 % (0-3); HEMATOCRIT 39.6 % (36.0-47.0); HEMOGLOBIN 13.3 g/dL (12.0-15.5); LYMPH # 2.2 x10^3/uL (1.0-4.8); LYMPH % 27 % (24-48); MEAN CORPUSCULAR HEMOGLOBIN 29 pg (25-35); MEAN CORPUSCULAR HGB CONC 34 g/dL (31-37); MEAN CORPUSCULAR VOLUME 87 fL (79-100); MONO # 0.5 x10^3/uL (0.0-1.1); MONO % 6 % (0-9); NEUT # 5.1 x10^3uL (1.8-7.7); NEUT % 64 % (31-73); PLATELET COUNT 259 x10^3/uL (140-400); RED BLOOD COUNT 4.58 x10^6/uL (3.50-5.40); RED CELL DISTRIBUTION WIDTH 14.3 % (11.5-14.5); WHITE BLOOD COUNT 7.9 x10^3/uL (4.0-11.0)
[2018-09-01 03:53] LABS: ALBUMIN 2.7 g/dL (3.4-5.0); ALBUMIN/GLOBULIN RATIO 0.9 (1.0-1.7); CALCIUM 8.6 mg/dL (8.5-10.1); CREATININE 0.9 mg/dL (0.6-1.0); GFR 76.3; POTASSIUM 3.9 mmol/L (3.5-5.1); TOTAL BILIRUBIN 0.2 mg/dL (0.2-1.0); TOTAL PROTEIN 5.8 g/dL (6.4-8.2)
[2018-09-01 07:35] VITALS: BP 143/90
[2018-09-01] MEDS: CITALOPRAM 10 MG TABLET. PO SCH (08:04)
[2018-09-01] MEDS: ARIPiprazole 5 MG TABLET PO SCH (08:05)
--- NOTE | 2018-09-01 08:22 | PDOC ---
PROGRESS NOTES Chief Complaint Chief Complaint Cocaine abuse with secondary hypotension elevated troponin suspect possible cardiac event Acute kidney injury secondary to near syncope Plan Serial enzymes serial EKGs Cardiac monitoring Consult cardiology stop smoking crack Home meds PT OT DVT prophylaxis Full code Prognosis guarded echo today History of Present Illness History of Present Illness Ms Cabello is a 62-year-old woman with past medical history HTN, cocaine use, who presents to the hospital in the setting of near syncope. She apparently was doing her usual activities and felt some lightheadedness and did not lose consciousness, but had to go to the floor. She did not have any chest pain or shortness of breath. Her blood pressures were low upon arrival of the EMS. Initial ER troponin was also elevated and therefore, Cardiology was consulted. Noted with ROSARIO as well. She underwent negative CT head, negative carotid dopplers and negative echocardiogram. [place] significantly improved with supportive care, d/c of HCTZ and metoprolol and initiating amlodipine for BP as well as counseling on cessation of cocaine. 39 min pt exam, chart review, > 50% of time spent with exam, chart review, pt care coordination Vitals Vitals Vital Signs Date Time Temp Pulse Resp B/P (MAP) Pulse Ox O2 Delivery O2 Flow Rate FiO2 09/01/18 08:05 78 143/90 09/01/18 07:35 98.1 16 99 Room Air 98.1 Physical Exam General: Alert, Oriented X3, Cooperative, mild distress Heart: Regular rate Lungs: Clear Abdomen: Normal bowel sounds, Soft Extremities: No clubbing, No cyanosis, No edema Skin: No breakdown Labs LABS Laboratory Tests Test 08/31/18 11:15 09/01/18 03:10 Sodium Level 142 mmol/L (136-145) 141 mmol/L (136-145) Potassium Level 3.7 mmol/L (3.5-5.1) 3.9 mmol/L (3.5-5.1) Chloride Level 107 mmol/L (98-107) 107 mmol/L (98-107) Carbon Dioxide Level 26 mmol/L (21-32) 23 mmol/L (21-32) Anion Gap 9 (6-14) 11 (6-14) Blood Urea Nitrogen 13 mg/dL (7-20) 12 mg/dL (7-20) Creatinine 1.1 mg/dL (0.6-1.0) 0.9 mg/dL (0.6-1.0) Estimated GFR (Cockcroft-Gault) 60.5 76.3 Glucose Level 126 mg/dL (70-99) 89 mg/dL (70-99) Calcium Level 8.8 mg/dL (8.5-10.1) 8.6 mg/dL (8.5-10.1) Troponin I Quantitative 0.441 ng/mL (0.000-0.055) 0.306 ng/mL (0.000-0.055) White Blood Count 7.9 x10^3/uL (4.0-11.0) Red Blood Count 4.58 x10^6/uL (3.50-5.40) Hemoglobin 13.3 g/dL (12.0-15.5) Hematocrit 39.6 % (36.0-47.0) Mean Corpuscular Volume 87 fL (79-100) Mean Corpuscular Hemoglobin 29 pg (25-35) Mean Corpuscular Hemoglobin Concent 34 g/dL (31-37) Red Cell Distribution Width 14.3 % (11.5-14.5) Platelet Count 259 x10^3/uL (140-400) Neutrophils (%) (Auto) 64 % (31-73) Lymphocytes (%) (Auto) 27 % (24-48) Monocytes (%) (Auto) 6 % (0-9) Eosinophils (%) (Auto) 2 % (0-3) Basophils (%) (Auto) 0 % (0-3) Neutrophils # (Auto) 5.1 x10^3uL (1.8-7.7) Lymphocytes # (Auto) 2.2 x10^3/uL (1.0-4.8) Monocytes # (Auto) 0.5 x10^3/uL (0.0-1.1) Eosinophils # (Auto) 0.1 x10^3/uL (0.0-0.7) Basophils # (Auto) 0.0 x10^3/uL (0.0-0.2) BUN/Creatinine Ratio 13 (6-20) Total Bilirubin 0.2 mg/dL (0.2-1.0) Aspartate Amino Transf (AST/SGOT) 15 U/L (15-37) Alanine Aminotransferase (ALT/SGPT) 15 U/L (14-59) Alkaline Phosphatase 83 U/L (46-116) Total Protein 5.8 g/dL (6.4-8.2) Albumin 2.7 g/dL (3.4-5.0) Albumin/Globulin Ratio 0.9 (1.0-1.7) Assessment and Plan Assessmemt and Plan Problems Medical Problems: (1) Cocaine abuse Status: Acute (2) Near syncope Status: Acute (3) NSTEMI (non-ST elevated myocardial infarction) Status: Acute Comment Review of Relevant I have reviewed the following items meena (where applicable) has been applied. Labs Laboratory Tests Test 08/30/18 14:25 08/30/18 14:30 08/30/18 18:20 08/30/18 21:20 White Blood Count 8.4 x10^3/uL (4.0-11.0) Red Blood Count 4.75 x10^6/uL (3.50-5.40) Hemoglobin 14.0 g/dL (12.0-15.5) Hematocrit 40.7 % (36.0-47.0) Mean Corpuscular Volume 86 fL (79-100) Mean Corpuscular Hemoglobin 30 pg (25-35) Mean Corpuscular Hemoglobin Concent 34 g/dL (31-37) Red Cell Distribution Width 14.4 % (11.5-14.5) Platelet Count 289 x10^3/uL (140-400) Neutrophils (%) (Auto) 73 % (31-73) Lymphocytes (%) (Auto) 21 % (24-48) Monocytes (%) (Auto) 4 % (0-9) Eosinophils (%) (Auto) 1 % (0-3) Basophils (%) (Auto) 1 % (0-3) Neutrophils # (Auto) 6.1 x10^3uL (1.8-7.7) Lymphocytes # (Auto) 1.8 x10^3/uL (1.0-4.8) Monocytes # (Auto) 0.3 x10^3/uL (0.0-1.1) Eosinophils # (Auto) 0.1 x10^3/uL (0.0-0.7) Basophils # (Auto) 0.1 x10^3/uL (0.0-0.2) Sodium Level 140 mmol/L (136-145) Potassium Level 3.5 mmol/L (3.5-5.1) Chloride Level 104 mmol/L (98-107) Carbon Dioxide Level 26 mmol/L (21-32) Anion Gap 10 (6-14) Blood Urea Nitrogen 19 mg/dL (7-20) Creatinine 1.5 mg/dL (0.6-1.0) Estimated GFR (Cockcroft-Gault) 42.3 BUN/Creatinine Ratio 13 (6-20) Glucose Level 137 mg/dL (70-99) Calcium Level 7.9 mg/dL (8.5-10.1) Total Bilirubin 0.7 mg/dL (0.2-1.0) Aspartate Amino Transf (AST/SGOT) 22 U/L (15-37) Alanine Aminotransferase (ALT/SGPT) 18 U/L (14-59) Alkaline Phosphatase 99 U/L (46-116) Creatine Kinase 100 U/L (26-192) Troponin I Quantitative 0.383 ng/mL (0.000-0.055) 0.512 ng/mL (0.000-0.055) 0.575 ng/mL (0.000-0.055) OO-Krd-K-Type Natriuretic Peptide 177 pg/mL (0-124) Total Protein 7.4 g/dL (6.4-8.2) Albumin 3.2 g/dL (3.4-5.0) Albumin/Globulin Ratio 0.8 (1.0-1.7) Lactic Acid Level 2.0 mmol/L (0.4-2.0) Test 08/31/18 11:15 09/01/18 03:10 Sodium Level 142 mmol/L (136-145) 141 mmol/L (136-145) Potassium Level 3.7 mmol/L (3.5-5.1) 3.9 mmol/L (3.5-5.1) Chloride Level 107 mmol/L (98-107) 107 mmol/L (98-107) Carbon Dioxide Level 26 mmol/L (21-32) 23 mmol/L (21-32) Anion Gap 9 (6-14) 11 (6-14) Blood Urea Nitrogen 13 mg/dL (7-20) 12 mg/dL (7-20) Creatinine 1.1 mg/dL (0.6-1.0) 0.9 mg/dL (0.6-1.0) Estimated GFR (Cockcroft-Gault) 60.5 76.3 Glucose Level 126 mg/dL (70-99) 89 mg/dL (70-99) Calcium Level 8.8 mg/dL (8.5-10.1) 8.6 mg/dL (8.5-10.1) Troponin I Quantitative 0.441 ng/mL (0.000-0.055) 0.306 ng/mL (0.000-0.055) White Blood Count 7.9 x10^3/uL (4.0-11.0) Red Blood Count 4.58 x10^6/uL (3.50-5.40) Hemoglobin 13.3 g/dL (12.0-15.5) Hematocrit 39.6 % (36.0-47.0) Mean Corpuscular Volume 87 fL (79-100) Mean Corpuscular Hemoglobin 29 pg (25-35) Mean Corpuscular Hemoglobin Concent 34 g/dL (31-37) Red Cell Distribution Width 14.3 % (11.5-14.5) Platelet Count 259 x10^3/uL (140-400) Neutrophils (%) (Auto) 64 % (31-73) Lymphocytes (%) (Auto) 27 % (24-48) Monocytes (%) (Auto) 6 % (0-9) Eosinophils (%) (Auto) 2 % (0-3) Basophils (%) (Auto) 0 % (0-3) Neutrophils # (Auto) 5.1 x10^3uL (1.8-7.7) Lymphocytes # (Auto) 2.2 x10^3/uL (1.0-4.8) Monocytes # (Auto) 0.5 x10^3/uL (0.0-1.1) Eosinophils # (Auto) 0.1 x10^3/uL (0.0-0.7) Basophils # (Auto) 0.0 x10^3/uL (0.0-0.2) BUN/Creatinine Ratio 13 (6-20) Total Bilirubin 0.2 mg/dL (0.2-1.0) Aspartate Amino Transf (AST/SGOT) 15 U/L (15-37) Alanine Aminotransferase (ALT/SGPT) 15 U/L (14-59) Alkaline Phosphatase 83 U/L (46-116) Total Protein 5.8 g/dL (6.4-8.2) Albumin 2.7 g/dL (3.4-5.0) Albumin/Globulin Ratio 0.9 (1.0-1.7) Laboratory Tests Test 08/31/18 11:15 09/01/18 03:10 Sodium Level 142 mmol/L (136-145) 141 mmol/L (136-145) Potassium Level 3.7 mmol/L (3.5-5.1) 3.9 mmol/L (3.5-5.1) Chloride Level 107 mmol/L (98-107) 107 mmol/L (98-107) Carbon Dioxide Level 26 mmol/L (21-32) 23 mmol/L (21-32) Anion Gap 9 (6-14) 11 (6-14) Blood Urea Nitrogen 13 mg/dL (7-20) 12 mg/dL (7-20) Creatinine 1.1 mg/dL (0.6-1.0) 0.9 mg/dL (0.6-1.0) Estimated GFR (Cockcroft-Gault) 60.5 76.3 Glucose Level 126 mg/dL (70-99) 89 mg/dL (70-99) Calcium Level 8.8 mg/dL (8.5-10.1) 8.6 mg/dL (8.5-10.1) Troponin I Quantitative 0.441 ng/mL (0.000-0.055) 0.306 ng/mL (0.000-0.055) White Blood Count 7.9 x10^3/uL (4.0-11.0) Red Blood Count 4.58 x10^6/uL (3.50-5.40) Hemoglobin 13.3 g/dL (12.0-15.5) Hematocrit 39.6 % (36.0-47.0) Mean Corpuscular Volume 87 fL (79-100) Mean Corpuscular Hemoglobin 29 pg (25-35) Mean Corpuscular Hemoglobin Concent 34 g/dL (31-37) Red Cell Distribution Width 14.3 % (11.5-14.5) Platelet Count 259 x10^3/uL (140-400) Neutrophils (%) (Auto) 64 % (31-73) Lymphocytes (%) (Auto) 27 % (24-48) Monocytes (%) (Auto) 6 % (0-9) Eosinophils (%) (Auto) 2 % (0-3) Basophils (%) (Auto) 0 % (0-3) Neutrophils # (Auto) 5.1 x10^3uL (1.8-7.7) Lymphocytes # (Auto) 2.2 x10^3/uL (1.0-4.8) Monocytes # (Auto) 0.5 x10^3/uL (0.0-1.1) Eosinophils # (Auto) 0.1 x10^3/uL (0.0-0.7) Basophils # (Auto) 0.0 x10^3/uL (0.0-0.2) BUN/Creatinine Ratio 13 (6-20) Total Bilirubin 0.2 mg/dL (0.2-1.0) Aspartate Amino Transf (AST/SGOT) 15 U/L (15-37) Alanine Aminotransferase (ALT/SGPT) 15 U/L (14-59) Alkaline Phosphatase 83 U/L (46-116) Total Protein 5.8 g/dL (6.4-8.2) Albumin 2.7 g/dL (3.4-5.0) Albumin/Globulin Ratio 0.9 (1.0-1.7) Microbiology 08/30/18 Blood Culture - Preliminary, Resulted NO GROWTH AFTER 1 DAY Medications Current Medications Sodium Chloride 1,000 ml @ 1,000 mls/hr 1X ONCE IV Last administered on 08/30/18at 15:03; Start 08/30/18 at 14:30; Stop 08/30/18 at 15:29; Status DC Aspirin (Children'S Aspirin) 324 mg 1X ONCE PO Last administered on 08/30/18at 15:11; Start 08/30/18 at 15:15; Stop 08/30/18 at 15:16; Status DC Ondansetron HCl (Zofran) 4 mg 1X ONCE IV Last administered on 08/30/18at 15:10; Start 08/30/18 at 15:15; Stop 08/30/18 at 15:16; Status DC Ondansetron HCl (Zofran) 4 mg PRN Q8HRS PRN IV NAUSEA/VOMITING; Start 08/30/18 at 15:30; Stop 08/31/18 at 15:29; Status DC Sodium Chloride 1,000 ml @ 75 mls/hr [id number] IV Last administered on 08/31/18at 04:50; Start 08/30/18 at 15:30; Stop 08/31/18 at 15:29; Status DC Nitroglycerin (Nitrostat) 0.4 mg PRN Q5MIN PRN SL CHEST PAIN; Start 08/30/18 at 15:30; Stop 08/31/18 at 15:29; Status DC Aripiprazole (Abilify) 5 mg DAILY PO Last administered on 09/01/18at 08:05; Start 08/31/18 at 09:00 Metoprolol Succinate (Toprol Xl) 25 mg DAILY PO ; Start 08/31/18 at 09:00; Stop 08/31/18 at 09:18; Status DC Citalopram Hydrobromide (CeleXA) 30 mg DAILY PO Last administered on 09/01/18at 08:04; Start 08/31/18 at 09:00 Hydrochlorothiazide (Hydrodiuril) 25 mg DAILY PO ; Start 08/31/18 at 09:00; Stop 08/31/18 at 09:18; Status DC Hydroxyzine Pamoate (Vistaril) 25 mg PRN Q6HRS PRN PO ANXIETY/AGITATION; Start 08/30/18 at 18:45 Amlodipine Besylate (Norvasc) 5 mg 1X ONCE PO ; Start 08/31/18 at 10:00; Stop 08/31/18 at 10:01; Status DC Amlodipine Besylate (Norvasc) 5 mg DAILY PO Last administered on 09/01/18at 08:05; Start 09/01/18 at 09:00 Active Scripts Active Reported Hydroxyzine Hcl 25 Mg Tablet 1 Tab PO PRN Q6HRS PRN Abilify (Aripiprazole) 5 Mg Tablet 5 Mg PO DAILY Lexapro (Escitalopram Oxalate) 5 Mg Tablet 3 Tab PO DAILY Hydrochlorothiazide Tablet (Hydrochlorothiazide) 50 Mg Tablet 25 Mg PO DAILY Metoprolol Succinate ( Xl ) (Metoprolol Succinate) 25 Mg Tab.er.24h 1 Tab PO DAILY Vitals/I & O Vital Sign - Last 24 Hours 5/26/19 5/26/19 5/26/19 5/26/19 10:00 11:50 14:43 19:01 Temp 98.4 98.3 98.4 98.3 Pulse 64 64 64 Resp 18 18 B/P (MAP) 121/68 113/69 (84) 121/68 (85) Pulse Ox 97 96 O2 Delivery Room Air Room Air Room Air 08/31/18 08/31/18 09/01/18 09/01/18 19:05 22:50 03:15 07:35 Temp 97.8 97.8 98.0 98.1 97.8 97.8 98.0 98.1 Pulse 63 63 63 78 Resp 18 18 18 16 B/P (MAP) 107/64 (78) 120/65 (83) 137/85 (102) 143/90 (107) Pulse Ox 96 97 96 99 O2 Delivery Room Air Room Air Room Air Room Air 09/01/18 08:05 Pulse 78 B/P (MAP) 143/90 Intake and Output 08/31/18 08/31/18 09/01/18 14:59 22:59 06:59 Intake Total 620 ml 480 ml 620 ml Output Total 200 ml 1350 ml Balance 420 ml 480 ml -730 ml DARA GAMEZ MD September 01, 2018 08:22
[2018-09-01] MEDS ORDERED: amLODIPine BESYLATE 5 MG TABLET PO SCH (09:00)
[2018-09-01 10:47] VITALS: BP 145/87
[2018-09-01] MEDS ORDERED: AMLO5TAB10 PO (11:35)
--- NOTE | 2018-09-01 11:44 | PDOC3 ---
Discharge Summary Visit Information Date of Admission: August 30, 2018 Date of Discharge: September 01, 2018 Admitting Diagnosis: Near Syncope, NSTEMI Final Diagnosis Problems Medical Problems: (1) Cocaine abuse Status: Acute (2) Near syncope Status: Acute (3) NSTEMI (non-ST elevated myocardial infarction) Status: Acute Brief Hospital Course Allergies Allergies Coded Allergies Type Severity Reaction Last Updated Verified lisinopril Allergy Intermediate 08/31/18 Yes Vital Signs Vital Signs Date Time Temp Pulse Resp B/P (MAP) Pulse Ox O2 Delivery O2 Flow Rate FiO2 09/01/18 10:47 98.5 66 16 145/87 (106) 97 Room Air 98.5 Lab Results Laboratory Tests Test 08/30/18 14:25 08/30/18 14:30 08/30/18 18:20 08/30/18 21:20 White Blood Count 8.4 x10^3/uL (4.0-11.0) Red Blood Count 4.75 x10^6/uL (3.50-5.40) Hemoglobin 14.0 g/dL (12.0-15.5) Hematocrit 40.7 % (36.0-47.0) Mean Corpuscular Volume 86 fL (79-100) Mean Corpuscular Hemoglobin 30 pg (25-35) Mean Corpuscular Hemoglobin Concent 34 g/dL (31-37) Red Cell Distribution Width 14.4 % (11.5-14.5) Platelet Count 289 x10^3/uL (140-400) Neutrophils (%) (Auto) 73 % (31-73) Lymphocytes (%) (Auto) 21 % (24-48) Monocytes (%) (Auto) 4 % (0-9) Eosinophils (%) (Auto) 1 % (0-3) Basophils (%) (Auto) 1 % (0-3) Neutrophils # (Auto) 6.1 x10^3uL (1.8-7.7) Lymphocytes # (Auto) 1.8 x10^3/uL (1.0-4.8) Monocytes # (Auto) 0.3 x10^3/uL (0.0-1.1) Eosinophils # (Auto) 0.1 x10^3/uL (0.0-0.7) Basophils # (Auto) 0.1 x10^3/uL (0.0-0.2) Sodium Level 140 mmol/L (136-145) Potassium Level 3.5 mmol/L (3.5-5.1) Chloride Level 104 mmol/L (98-107) Carbon Dioxide Level 26 mmol/L (21-32) Anion Gap 10 (6-14) Blood Urea Nitrogen 19 mg/dL (7-20) Creatinine 1.5 mg/dL (0.6-1.0) Estimated GFR (Cockcroft-Gault) 42.3 BUN/Creatinine Ratio 13 (6-20) Glucose Level 137 mg/dL (70-99) Calcium Level 7.9 mg/dL (8.5-10.1) Total Bilirubin 0.7 mg/dL (0.2-1.0) Aspartate Amino Transf (AST/SGOT) 22 U/L (15-37) Alanine Aminotransferase (ALT/SGPT) 18 U/L (14-59) Alkaline Phosphatase 99 U/L (46-116) Creatine Kinase 100 U/L (26-192) Troponin I Quantitative 0.383 ng/mL (0.000-0.055) 0.512 ng/mL (0.000-0.055) 0.575 ng/mL (0.000-0.055) LH-Zry-B-Type Natriuretic Peptide 177 pg/mL (0-124) Total Protein 7.4 g/dL (6.4-8.2) Albumin 3.2 g/dL (3.4-5.0) Albumin/Globulin Ratio 0.8 (1.0-1.7) Lactic Acid Level 2.0 mmol/L (0.4-2.0) Test 08/31/18 11:15 09/01/18 03:10 Sodium Level 142 mmol/L (136-145) 141 mmol/L (136-145) Potassium Level 3.7 mmol/L (3.5-5.1) 3.9 mmol/L (3.5-5.1) Chloride Level 107 mmol/L (98-107) 107 mmol/L (98-107) Carbon Dioxide Level 26 mmol/L (21-32) 23 mmol/L (21-32) Anion Gap 9 (6-14) 11 (6-14) Blood Urea Nitrogen 13 mg/dL (7-20) 12 mg/dL (7-20) Creatinine 1.1 mg/dL (0.6-1.0) 0.9 mg/dL (0.6-1.0) Estimated GFR (Cockcroft-Gault) 60.5 76.3 Glucose Level 126 mg/dL (70-99) 89 mg/dL (70-99) Calcium Level 8.8 mg/dL (8.5-10.1) 8.6 mg/dL (8.5-10.1) Troponin I Quantitative 0.441 ng/mL (0.000-0.055) 0.306 ng/mL (0.000-0.055) White Blood Count 7.9 x10^3/uL (4.0-11.0) Red Blood Count 4.58 x10^6/uL (3.50-5.40) Hemoglobin 13.3 g/dL (12.0-15.5) Hematocrit 39.6 % (36.0-47.0) Mean Corpuscular Volume 87 fL (79-100) Mean Corpuscular Hemoglobin 29 pg (25-35) Mean Corpuscular Hemoglobin Concent 34 g/dL (31-37) Red Cell Distribution Width 14.3 % (11.5-14.5) Platelet Count 259 x10^3/uL (140-400) Neutrophils (%) (Auto) 64 % (31-73) Lymphocytes (%) (Auto) 27 % (24-48) Monocytes (%) (Auto) 6 % (0-9) Eosinophils (%) (Auto) 2 % (0-3) Basophils (%) (Auto) 0 % (0-3) Neutrophils # (Auto) 5.1 x10^3uL (1.8-7.7) Lymphocytes # (Auto) 2.2 x10^3/uL (1.0-4.8) Monocytes # (Auto) 0.5 x10^3/uL (0.0-1.1) Eosinophils # (Auto) 0.1 x10^3/uL (0.0-0.7) Basophils # (Auto) 0.0 x10^3/uL (0.0-0.2) BUN/Creatinine Ratio 13 (6-20) Total Bilirubin 0.2 mg/dL (0.2-1.0) Aspartate Amino Transf (AST/SGOT) 15 U/L (15-37) Alanine Aminotransferase (ALT/SGPT) 15 U/L (14-59) Alkaline Phosphatase 83 U/L (46-116) Total Protein 5.8 g/dL (6.4-8.2) Albumin 2.7 g/dL (3.4-5.0) Albumin/Globulin Ratio 0.9 (1.0-1.7) Laboratory Tests Test 09/01/18 03:10 White Blood Count 7.9 x10^3/uL (4.0-11.0) Red Blood Count 4.58 x10^6/uL (3.50-5.40) Hemoglobin 13.3 g/dL (12.0-15.5) Hematocrit 39.6 % (36.0-47.0) Mean Corpuscular Volume 87 fL (79-100) Mean Corpuscular Hemoglobin 29 pg (25-35) Mean Corpuscular Hemoglobin Concent 34 g/dL (31-37) Red Cell Distribution Width 14.3 % (11.5-14.5) Platelet Count 259 x10^3/uL (140-400) Neutrophils (%) (Auto) 64 % (31-73) Lymphocytes (%) (Auto) 27 % (24-48) Monocytes (%) (Auto) 6 % (0-9) Eosinophils (%) (Auto) 2 % (0-3) Basophils (%) (Auto) 0 % (0-3) Neutrophils # (Auto) 5.1 x10^3uL (1.8-7.7) Lymphocytes # (Auto) 2.2 x10^3/uL (1.0-4.8) Monocytes # (Auto) 0.5 x10^3/uL (0.0-1.1) Eosinophils # (Auto) 0.1 x10^3/uL (0.0-0.7) Basophils # (Auto) 0.0 x10^3/uL (0.0-0.2) Sodium Level 141 mmol/L (136-145) Potassium Level 3.9 mmol/L (3.5-5.1) Chloride Level 107 mmol/L (98-107) Carbon Dioxide Level 23 mmol/L (21-32) Anion Gap 11 (6-14) Blood Urea Nitrogen 12 mg/dL (7-20) Creatinine 0.9 mg/dL (0.6-1.0) Estimated GFR (Cockcroft-Gault) 76.3 BUN/Creatinine Ratio 13 (6-20) Glucose Level 89 mg/dL (70-99) Calcium Level 8.6 mg/dL (8.5-10.1) Total Bilirubin 0.2 mg/dL (0.2-1.0) Aspartate Amino Transf (AST/SGOT) 15 U/L (15-37) Alanine Aminotransferase (ALT/SGPT) 15 U/L (14-59) Alkaline Phosphatase 83 U/L (46-116) Troponin I Quantitative 0.306 ng/mL (0.000-0.055) Total Protein 5.8 g/dL (6.4-8.2) Albumin 2.7 g/dL (3.4-5.0) Albumin/Globulin Ratio 0.9 (1.0-1.7) Brief Hospital Course Ms Cabello is a 62-year-old woman with past medical history HTN, cocaine use, who presents to the hospital in the setting of near syncope. She apparently was doing her usual activities and felt some lightheadedness and did not lose consc iousness, but had to go to the floor. She did not have any chest pain or shortness of breath. Her blood pressures were low upon arrival of the EMS. Initial ER troponin was also elevated and therefore, Cardiology was consulted. Noted with ROSARIO as well. Improved with hydration, holding HCTZ. She underwent negative CT head, negative carotid dopplers and negative echocardiogram (formal read on echo pending at time of discharge). [place] significantly improved with supportive care, d/c of HCTZ and metoprolol and initiating amlodipine for BP as well as counseling on cessation of cocaine. Cocaine abuse Secondary hypertension NSTEMI - elevated troponin suspect cocaine vasospasm. Trended down to 0.3 Acute kidney injury secondary vasomotor nephropathy - stop HCTZ Moderate protein calorie malnutrition Depression (with history of psychotic features/BP disorder) - cont SSRI, abilify 39 min pt exam, chart review, > 50% of time spent with exam, chart review, pt care coordination Discharge Information Condition at Discharge: Improved Follow Up: Weeks (2) Disposition/Orders: D/C to Home Scheduled Amlodipine Besylate (Amlodipine Besylate) 5 Mg Tablet, 5 MG PO DAILY for HTN for 30 Days, #30 Ref 5 Prescribed by: DARA GAMEZ MD on 09/01/18 1135 Aripiprazole (Abilify) 5 Mg Tablet, 5 MG PO DAILY for depression, (Reported) Entered as Reported by: FRANSISCA RAMIRZE on 08/30/181641 Last Taken: Unknown Dose on 08/30/18 Last Action: Continued on 08/30/181824 by FRANSISCA RAMIREZ Escitalopram Oxalate (Lexapro) 5 Mg Tablet, 3 TAB PO DAILY for depression, #30 Ref 2 (Reported) Entered as Reported by: FRANSISCA RAMIREZ on 08/30/181641 Last Taken: Unknown Dose on 08/30/18 Last Action: Converted on 08/30/181824 by FRANSISCA RAMIREZ Scheduled PRN Hydroxyzine Hcl (Hydroxyzine Hcl) 25 Mg Tablet, 1 TAB PO PRN Q6HRS PRN for ANXIETY / AGITATION, #30 (Reported) Entered as Reported by: FRANSISCA RAMIREZ on 08/30/181641 Last Taken: Unknown Dose on Unknown Date & Time Last Action: Converted on 08/30/181824 by FRANSISCA RAMIREZ Discontinued Medications Hydrochlorothiazide (Hydrochlorothiazide Tablet) 50 Mg Tablet, 25 MG PO DAILY for DIURETIC, Ref 0 (Reported) Entered as Reported by: FRANSISCA RAMIREZ on 08/30/181641 Last Taken: Unknown Dose on 08/30/18 Last Action: Converted on 08/30/181824 by FRANSISCA RAMIREZ Metoprolol Succinate (Metoprolol Succinate ( Xl )) 25 Mg Tab.er.24h, 1 TAB PO DAILY for HTN, #30 Ref 5 (Reported) Entered as Reported by: FRANSISCA RAMIREZ on 08/30/181641 Last Taken: Unknown Dose on 08/30/18 Last Action: Continued on 08/30/181824 by DARA ZAMBRANO MD September 01, 2018 11:44
--- NOTE | 2018-09-01 13:25 | NUR ---
Discharge Note: [facility] Discharge instructions and discharge home medications reviewed with Patient and a copy given. All questions have been answered and understanding verbalized. The following instructions and handouts were given: substance abuse, syncope, and dehydration. Discontinued iv lines and cathter intact. Patient discharged to home with [facility] via [facility].
--- NOTE | 2018-09-02 10:56 | CARD ---
MR#: [id number] Date of Study: 08/31/2018 Ordering Physician: MEENAKSHI SELLERS, Referring Physician: RICK GOMEZ Tech: June Xiao Renorossy APPROVED REPORT EXAM: Two-dimensional and M-mode echocardiogram with Doppler and color Doppler. Other Information Quality : GoodHR: 66bpm Rhythm : NSR INDICATION Syncope Elevated Troponin RISK FACTORS Hypertension 2D DIMENSIONS RVDd2.3 (2.9-3.5cm)Left Atrium(2D)2.9 (1.6-4.0cm) IVSd1.0 (0.7-1.1cm)Aortic Root(2D)3.0 (2.0-3.7cm) LVDd4.1 (3.9-5.9cm)LVOT Diameter1.9 (1.8-2.4cm) PWd1.0 (0.7-1.1cm)LVDs2.8 (2.5-4.0cm) FS (%) 32.0 %SV44.1 ml LVEF(%)60.7 (>50%) Aortic Valve AoV Peak Henrry.134.4cm/sAoV VTI27.7cm AO Peak GR.7.2mmHgLVOT VTI 20.27cm AO Mean GR.5mmHgAI P 1/2 Oejb727zu Mitral Valve MV E Ffhfqclu49.6cm/sMV DECEL BLNQ279ud MV A Jcvhtbjb64.0cm/sE/A Ratio1.4 TDI Lateral E' P. V9.33cm/sMedial E' P. V7.59cm/s E/Lateral E'10.2E/Medial E'12.6 Tricuspid Valve TR P. Aqayaohp353hr/sRAP PWOHUDSK5xlHa TR Peak Gr.31yxFzIMKF28yiGx Pulmonary Vein S1 Ihslztay96.6cm/sS2 Xnplqbsa48.32cm/s D2 Idcfggji40.3cm/sPVa ionhfnpq950skrd LEFT VENTRICLE The left ventricle is normal size. There is normal left ventricular wall thickness. The left ventricu lar systolic function is normal and the ejection fraction is within normal range. The Ejection Fracti on is 50-55%. There is normal LV segmental wall motion. Transmitral Doppler flow pattern is Grade II- pseudonormal filling dynamics. RIGHT VENTRICLE The right ventricle is borderline dilated. There is normal right ventricular wall thickness. The righ t ventricular systolic function is normal. ATRIA The left atrium size is normal. The right atrium size is normal. The interatrial septum is intact wit h no evidence for an atrial septal defect or patent foramen ovale as noted on 2-D or Doppler imaging. AORTIC VALVE Not well visualized. Grossly trileaflet. Doppler and Color Flow revealed trace aortic regurgitation. There is no significant aortic valvular stenosis. MITRAL VALVE The mitral valve is normal in structure and function. There is no evidence of mitral valve prolapse. There is no mitral valve stenosis. Doppler and Color-flow revealed trace mitral regurgitation. TRICUSPID VALVE The tricuspid valve is normal in structure and function. Doppler and Color Flow revealed trace tricus pid regurgitation with an estimated PAP of 21 mmHg. There is no tricuspid valve stenosis. PULMONIC VALVE The pulmonic valve is not well visualized. Doppler and Color Flow revealed trace pulmonic valvular re gurgitation. There is no pulmonic valvular stenosis. GREAT VESSELS The aortic root is normal in size. The IVC is normal in size and collapses >50% with inspiration. PERICARDIAL EFFUSION There is no evidence of significant pericardial effusion. Critical Notification Critical Value: No <Conclusion> The left ventricular systolic function is normal and the ejection fraction is within normal range. Th e Ejection Fraction is 50-55%. There is normal LV segmental wall motion. Technically difficult study Signed by : Meenakshi Sellers, Electronically Approved : 08/31/2018 17:30:24
== END 2018-09-01 13:15 | disposition home or self-care (01) | DRG 917 ==
LOC: ER 14:11 → 2 SOUTH 15:00
PROVIDERS: ADMIT Internal Medicine; ATTEND Internal Medicine
DX: T40.5X1A Poisoning by cocaine, accidental (unintentional), initial encounter (principal); I21.4 Non-ST elevation (NSTEMI) myocardial infarction; N17.0 Acute kidney failure with tubular necrosis; E44.0 Moderate protein-calorie malnutrition; I95.2 Hypotension due to drugs; F32.9 Major depressive disorder, single episode, unspecified; F41.9 Anxiety disorder, unspecified; I10 Essential (primary) hypertension; F17.200 Nicotine dependence, unspecified, uncomplicated; Z85.3 Personal history of malignant neoplasm of breast; Z88.8 Allergy status to other drugs, medicaments and biological substances; Z68.29 Body mass index [BMI] 29.0-29.9, adult
CPT/HCPCS: 36415; 70450; 71045; 80048; 80053; 82550; 83605; 83880; 84484; 85025; 87040; 93005; 93306; 93880; J2405; J7030; 99285-25

== ENCOUNTER → 2020-11-07 | Outpatient (CLI) | payer BC, MEDICARE, OTHER ==
[~2020-11-07] MED LIST changes: +AMLO-186 PO; +ARIP5TAB13 PO; +HYDR25TA PO; +HYDR50TA9 PO; +LEXAPRO5 MG PO; +METO-239 PO
--- NOTE | 2020-11-07 13:22 | KCIC ---
EXAM: Low dose lung cancer screening chest CT without intravenous contrast. HISTORY: Lung cancer screening. Cigarette smoking. TECHNIQUE: Computed tomographic images of the chest were obtained without contrast. Multiplanar refor matting was performed. *One or more of the following individualized dose reduction techniques were utilized for this examina tion: 1. Automated exposure control. 2. Adjustment of the mA and/or kV according to patient size. 3. Use of iterative reconstruction technique. COMPARISON: None. FINDINGS: The heart is normal in size. There is calcified atherosclerotic plaque involving the aorta and coronary arteries. No pathologically enlarged mediastinal or hilar lymph node is seen. There is n o pneumothorax or pleural effusion. There is emphysema. There is biapical predominant pleural parench ymal scarring. There is bilateral superolateral thoracic nodular pleural thickening which is also lik selina due to scarring. There is no acute finding involving the upper abdomen or osseous structures. The re is degenerative change involving the thoracic spine, primarily at T6-T7. IMPRESSION: Pulmonary emphysema with biapical pleural parenchymal scarring and associated benign-appe aring lateral upper lobe predominant nodular pleural thickening. There is no acute thoracic finding o r suspicious pulmonary nodule. Lung RADS category 2: Annual low-dose lung cancer screening CT is belén mmended. Electronically signed by: Leticia Napoles MD (11/07/2020 1:20 PM) [id number]
== END ==
LOC: KCIC CT 12:28
PROVIDERS: ATTEND Family Medicine
DX: J43.9 Emphysema, unspecified (principal); J98.4 Other disorders of lung; I70.0 Atherosclerosis of aorta; I25.10 Atherosclerotic heart disease of native coronary artery without angina pectoris; M47.814 Spondylosis without myelopathy or radiculopathy, thoracic region; F17.210 Nicotine dependence, cigarettes, uncomplicated
CPT/HCPCS: 71271